=== PATIENT | male | born 1970 | race African-American/Black ===

== ENCOUNTER 2016-04-17 20:19 | Inpatient (IN) | payer OTHER ==
[2016-04-17 21:54] VITALS: BMI 24.5
--- NOTE | 2016-04-17 22:12 | HP ---
COWS - Scale Resting Pulse: 1= [place] 81-100 Sweatin= Chills/Flushing Restless Observation: 1= Difficult to Sit Still Pupil Size: 0= Normal to Room Light Bone or Joint Aches: 2= Severe Diffuse Aches Runny Nose/ Eye Tearin= Nasal Congestion GI Upset > 30mins: 2= Nausea/Diarrhea Tremor Observation: 2= Slight Tremor Visible Yawning Observation: 0= None Anxiety or Irritability: 2=Irritable/Anxious Goose Flesh Skin: 0=Smooth Skin COWS Score: 12 CIWA Score - CIWA Score Nausea/Vomitin-Mild Nausea/No Vomiting Muscle Tremors: 4-Moderate,w/Arms Extend Anxiety: 4-Mod. 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, denies mental illness is admitted to detox Exam Limitations: No Limitations - Ebola screening Have you traveled outside of the country in the last 21 days: No (N) Have you had contact with anyone from an Ebola affected area: No Have you been sick,other than usual withdrawal symptoms: No Do you have a fever: No - Review of Systems Constitutional: Chills, Loss of Appetite, Changes in sleep, Unexplained wgt Loss EENT: reports: No Symptoms Reported Respiratory: reports: SOB with Exertion, Other ( needed eye glasses) Cardiac: reports: No Symptoms Reported GI: reports: Nausea, Poor Appetite, Poor Fluid Intake, Abdominal cramping : reports: No Symptoms Reported Musculoskeletal: reports: Joint Pain (right shoulder) Integumentary: reports: No Symptoms Reported Neuro: reports: Tremors Endocrine: reports: No Symptoms Reported Hematology: reports: No Symptoms Reported Psychiatric: reports: Judgement Intact, Orientated x3, Anxious Other Systems: Reviewed and Negative Patient History - Patient Medical History Hx Anemia: No Hx Asthma: No Hx Chronic Obstructive Pulmonary Disease (COPD): Yes Hx Cancer: No Hx Cardiac Disorders: No Hx Congestive Heart Failure: No Hx Hypertension: No Hx Hypercholesterolemia: No Hx Pacemaker: No HX Cerebrovascular Accident: No Hx Seizures: No Hx Dementia: No Hx Diabetes: No Hx Gastrointestinal Disorders: No Hx Liver Disease: No Hx Genitourinary Disorders: No Hx Sexually Transmitted Disorders: No Hx Renal Disease (ESRD): No Hx Thyroid Disease: No Hx Human Immunodeficiency Virus (HIV): No (last 2009 negative) Hx Hepatitis C: No Hx Depression: Yes Hx Suicide Attempt: No Hx Bipolar Disorder: No Hx Schizophrenia: No - Patient Surgical History Past Surgical History: No Hx Neurologic Surgery: No Hx Cataract Extraction: No Hx Cardiac Surgery: No Hx Lung Surgery: No Hx Breast Surgery: No Hx Breast Biopsy: No Hx Abdominal Surgery: No Hx Appendectomy: No Hx Cholecystectomy: No Hx Genitourinary Surgery: No Hx Orthopedic Surgery: No - PPD History Previous Implant?: Yes Documented Results: Negative w/proof Implanted On Prior R Admission?: Yes Date: 07/14/15 Results: 0 mm PPD to be Administered?: No - Smoking Cessation Smoking history: Current every day smoker Have you smoked in the past 12 months: Yes Aproximately how many cigarettes per day: 20 Cigars Per Day: 0 Hx Chewing Tobacco Use: No Initiated information on smoking cessation: Yes 'Breaking Loose' booklet given: 04/17/16 - Substance & Tx. History Hx Alcohol Use: Yes Hx Substance Use: Yes Substance Use Type: Alcohol, Heroin, Opiates Hx Substance Use Treatment: Yes - Substances Abused Alcohol Route: Oral Frequency: Daily Amount used: liquor- 2 pints, beer 1 six pack Age of first use: 17 Date of Last Use: 04/17/16 Heroin Route: Inhalation Frequency: Daily Amount used: 8 bags Age of first use: 21 Date of Last Use: 04/17/16 Family Disease History - Family Disease History Family Disease History: Diabetes: Mother, Heart Disease: Father Admission Physical Exam BHS - Vital Signs Vital Signs: Vital Signs - 24 hr 04/17/16 21:47 Temperature 97.6 F Pulse Rate 88 Respiratory 20 Rate Blood Pressure 126/70 - Physical General Appearance: Yes: Appropriately Dressed, Mild Distress, Alcohol on Breath , Thin, Tremorous, Irritable, Sweating, Anxious HEENTM: Yes: Hearing grossly Normal, Normal ENT Inspection, Normocephalic, Normal Voice Respiratory: Yes: Chest Non-Tender, No Respiratory Distress, No Accessory Muscle Use, Hyperresonant, Inspiration Neck: Yes: Supple, Trachea in good position Breast: Yes: Breasts Symetrical Cardiology: Yes: Regular Rhythm, Regular Rate, S1, S2 Abdominal: Yes: Non Tender, Soft Genitourinary: Yes: Within Normal Limits Back: Yes: Normal Inspection Musculoskeletal: Yes: full range of Motion, Gait Steady, Muscle Pain Extremities: Yes: Normal Range of Motion, Non-Tender, Tremors Neurological: Yes: Fully Oriented, Alert, Motor Strength 5/5, Normal Response, Depressed Affect Integumentary: Yes: Warm Lymphatic: Yes: Within Normal Limits - Diagnostic (1) Alcohol dependence with uncomplicated withdrawal Current Visit: Yes Status: Acute (2) Anxiety and depression Current Visit: Yes Status: Suspected (3) Decreased range of motion of right shoulder Current Visit: Yes Status: Chronic (4) Nicotine dependence Current Visit: Yes Status: Acute Qualifiers: Nicotine product type: cigarettes Substance use status: uncomplicated Qualified Code(s): F17.210 - Nicotine dependence, cigarettes, uncomplicated (5) Opioid dependence with withdrawal Current Visit: Yes Status: Acute (6) Weight loss Current Visit: Yes Status: Acute (7) COPD (chronic obstructive pulmonary disease) Current Visit: Yes Status: Acute Qualifiers: COPD type: emphysema Emphysema type: other Qualified Code(s): J43.8 - Other emphysema Cleared for Admission BHS - Detox or Rehab [facility] Level of Care: Medically Managed Detox Regimen/Protocol: Methadone/Librium S Breath Alcohol Content Breath Alcohol Content: 0.076 Urine Drug Screen - Results Urine Drug Screen Results: OPI-Opiates, OXY-Oxycodone
[2016-04-17] MEDS ORDERED: guaiFENesin/D-METHORPHAN HB 10 ML UNIT-DOSE CUPS PO PRN (22:17)
[2016-04-17] MEDS ORDERED: NICOTINE POLACRILEX 2 MG GUM BC PRN (22:17)
[2016-04-17] MEDS ORDERED: LOPERAMIDE HCL 2 MG CAPSULE PO PRN (22:17)
[2016-04-17] MEDS ORDERED: chlordiazePOXIDE HCL 25 MG CAPSULE PO ONE (22:17)
[2016-04-17] MEDS ORDERED: P-EPHED 60MG/TRIPROLIDI 2.5MG TABLET PO PRN (22:17)
[2016-04-17] MEDS ORDERED: ACETAMINOPHEN 325 MG TABLET (FP) PO PRN (22:17)
[2016-04-17] MEDS ORDERED: MAGNESIUM CITRATE 300 ML BOTTLE PO PRN (22:17)
[2016-04-17] MEDS ORDERED: MENTHOL/PHENOL 1 EACH UD MM PRN (22:17)
[2016-04-17] MEDS ORDERED: MAG HYDROX/AL HYDROX/SIMETH 30 ML UNIT-DOSE CUP PO PRN (22:17)
[2016-04-17] MEDS ORDERED: MAGNESIUM HYDROX 2400MG/30ML ORAL SUSPENSION 30 ML CUP PO PRN (22:17)
[2016-04-17] MEDS ORDERED: METHADONE HCL 10 MG TABLET (FOR DETOX USE ONLY) PO ONE ×2 (22:17→23:00)
[2016-04-17] MEDS ORDERED: ALBUTEROL SO4 6.7 GM HFA INHALER IH PRN (22:25)
[2016-04-17] MEDS: chlordiazePOXIDE HCL 25 MG CAPSULE PO SCH (22:42)
[2016-04-17] MEDS: diphenhydrAMINE HCL 50 MG CAPSULE PO PRN (22:43)
[2016-04-18] MEDS: chlordiazePOXIDE HCL 25 MG CAPSULE PO SCH ×4 (05:45→22:11)
[2016-04-18 09:54] LABS: MEAN PLT VOLUME 8.9 fl (7.5-11.1); PLATELET COUNT 197 K/MM3 (134-434); RDW 13.6 % (11.9-15.9); WHITE BLOOD COUNT 4.6 K/mm3 (4.0-10.0)
[2016-04-18] MEDS ORDERED: METHADONE HCL 10 MG TABLET (FOR DETOX USE ONLY) PO SCH (10:00)
[2016-04-18] MEDS: HYDROCORTISONE 1% TOPICAL OINT 30 GM TUBE TP SCH ×4 (10:00→22:12)
[2016-04-18 10:12] LABS: ALBUMIN 3.4 g/dl (3.4-5.0); ALK PHOS 65 U/L (45-117); ANION GAP 6 (8-16); BILIRUBIN,TOTAL 0.3 mg/dL (0.2-1.0); CALCIUM 8.9 mg/dL (8.5-10.1); CO2 30 mmol/L (21-32); GLUCOSE,RANDOM 99 mg/dL (74-106); SGOT/AST 77 U/L (15-37); SGPT/ALT 96 U/L (12-78); TOT PROT 6.4 g/dl (6.4-8.2)
--- NOTE | 2016-04-18 10:32 | CONSULT ---
[facility] Psychiatric Consult - Data Date of interview: 04/18/16 Admission source: [facility] Identifying data: Readmission to [facility] for this 45 y/o AA male seeking detox treatment on for alcohol and heroin dependence.Patient is single without children,domiciled and supported on odd jobs. Substance Abuse History: - Smoking Cessation. Smoking history: Current every day smoker. Have you smoked in the past 12 months: Yes. Aproximately how many cigarettes per day: 20. Cigars Per Day: 0. Hx Chewing Tobacco Use: No. Initiated information on smoking cessation: Yes. 'Breaking Loose' booklet given : 04/17/16. - Substance & Tx. History. Hx Alcohol Use: Yes. Hx Substance Use : Yes. Substance Use Type: Alcohol, Heroin, Opiates. Hx Substance Use Treatment: Yes. - Substances Abused. Alcohol. Route: Oral. Frequency: Daily. Amount used: liquor- 2 pints, beer 1 six pack. Age of first use: 17. Date of Last Use: 04/17/16. Heroin. Route: Inhalation. Frequency: Daily. Amount used: 8 bags. Age of first use: 21. Date of Last Use: 04/17/16. Patient confirmed. Medical History: Remarkable for a history of injury to right shoulder (2013) with atrophy of right arm. Psychiatric History: Patient denies. Physical/Sexual Abuse/Trauma History: Patient denies. Mental Status Exam - Mental Status Exam Alert and Oriented to: Time, Place, Person Cognitive Function: Good Patient Appearance: Well Groomed Mood: Nervous, Withdrawn, Hopeful Affect: Mood Congruent Patient Behavior: Fatigued, Talkative, Appropriate, Cooperative Speech Pattern: Clear, Appropriate Voice Loudness: Normal Thought Process: Goal Oriented Thought Disorder: Not Present Hallucinations: Denies Suicidal Ideation: Denies Homicidal Ideation: Denies Insight/Judgement: Poor Sleep: Well (as per self-report) Appetite: Good Muscle strength/Tone: Normal Psychiatric Findings - Problem List ([place] 1, 2,3) (1) Alcohol dependence with uncomplicated withdrawal Current Visit: Yes Status: Acute (2) Nicotine dependence Current Visit: Yes Status: Acute Qualifiers: Nicotine product type: cigarettes Substance use status: uncomplicated Qualified Code(s): F17.210 - Nicotine dependence, cigarettes, uncomplicated (3) Opioid dependence with withdrawal Current Visit: Yes Status: Acute (4) Substance induced mood disorder Current Visit: Yes Status: Acute (5) COPD (chronic obstructive pulmonary disease) Current Visit: Yes Status: Chronic Qualifiers: COPD type: emphysema Emphysema type: other Qualified Code(s): J43.8 - Other emphysema (6) Weight loss Current Visit: Yes Status: Chronic (7) Decreased range of motion of right shoulder Current Visit: Yes Status: Chronic - Initial Treatment Plan Initial Treatment Plan: Psychoeducation.Detoxification.Observation.
[2016-04-18 10:33] LABS: URINE APPEARANCE CLEAR; URINE BILIRUBIN NEGATIVE (NEGATIVE); URINE BLOOD NEGATIVE (NEGATIVE); URINE COLOR LT. YELLOW; URINE GLUCOSE (UA) NEGATIVE (NEGATIVE); URINE KETONE NEGATIVE (NEGATIVE); URINE LEUK ESTERASE NEGATIVE (NEGATIVE); URINE NITRITE NEGATIVE (NEGATIVE); URINE PROTEIN NEGATIVE (NEGATIVE); URINE UROBILINOGEN 0.2 E.U/dl E.U./dl (0.2-1.0)
[2016-04-18] MEDS: PRENATAL VITAMINS W/ FOLIC ACID TABLET (FP) PO SCH (10:42)
[2016-04-18] MEDS: NICOTINE 21 MG/24 HOURS TOPICAL PATCH TD SCH (10:43)
--- NOTE | 2016-04-18 13:38 | PN ---
S CIWA - CIWA Score Nausea/Vomitin Muscle Tremors: 2 Anxiety: 2 Agitation: 2 Paroxysmal Sweats: 3 Orientation: 0-Oriented Tacttile Disturbances: 1-Very Mild Itch/Numbness Auditory Disturbances: 0-None Visual Disturbances: 0-None Headache: 0-None Present CIWA-Ar Total Score: 12 BHS COWS - Scale Resting Pulse: 2= [place] 101-120 Sweatin=Flushed/Facial Moisture Restless Observation: 1= Difficult to Sit Still Pupil Size: 1= Pupils >than Normal Bone or Joint Aches: 1= Mild Discomfort Runny Nose/ Eye Tearin= Nasal Congestion GI Upset > 30mins: 1= Stomach Cramp Tremor Observation of Outstretched Hands: 1= Tremor [place], Not Seen Yawning Observation: 0= None Anxiety or Irritability: 1=Feels Anxious/Irritable Goose Flesh Skin: 0=Smooth Skin COWS Score: 11 S Progress Note (SOAP) Subjective: interrupted sleep, sweats but better Objective: 04/18/16 13:37 Vital Signs Temperature 98.1 F 04/18/16 09:42 Pulse Rate 120 H 04/18/16 09:42 Respiratory Rate 18 04/18/16 09:42 Blood Pressure 120/75 04/18/16 09:42 O2 Sat by Pulse Oximetry (%) Laboratory Tests 04/18/16 04/18/16 04/18/16 07:00 07:00 07:00 WBC 4.6 RBC 4.02 Hgb 13.2 Hct 40.2 MCV 100.0 H MCHC 33.0 RDW 13.6 Plt Count 197 D MPV 8.9 Sodium 142 Potassium 4.2 Chloride 106 Carbon Dioxide 30 Anion Gap 6 L BUN 21 H Creatinine 1.0 Creat Clearance w eGFR > 60 Random Glucose 99 Calcium 8.9 Total Bilirubin 0.3 D AST 77 H D ALT 96 H D Alkaline Phosphatase 65 D Total Protein 6.4 Albumin 3.4 Urine Color Urine Appearance Urine pH Ur Specific [place] Urine Protein Urine Glucose (UA) Urine Ketones Urine Blood Urine Nitrite Urine Bilirubin Urine Urobilinogen Ur Leukocyte Esterase RPR Titer Nonreactive 04/18/16 08:00 WBC RBC Hgb Hct MCV MCHC RDW Plt Count MPV Sodium Potassium Chloride Carbon Dioxide Anion Gap BUN Creatinine Creat Clearance w eGFR Random Glucose Calcium Total Bilirubin AST ALT Alkaline Phosphatase Total Protein Albumin Urine Color Lt. yellow Urine Appearance Clear Urine pH 6.0 Ur Specific [place] 1.025 Urine Protein Negative Urine Glucose (UA) Negative Urine Ketones Negative Urine Blood Negative Urine Nitrite Negative Urine Bilirubin Negative Urine Urobilinogen 0.2 e.u/dl Ur Leukocyte Esterase Negative RPR Titer pt aox3 in nad ambulating Assessment: 04/18/16 13:37 withdrawl ssx;s elevated enzymes Plan: cont. detox increase fluids sgot/sgpt d/c tylenol
[2016-04-18] MEDS: diphenhydrAMINE HCL 50 MG CAPSULE PO PRN (22:09)
[2016-04-18] MEDS: THIAMINE HCL 100 MG TABLET (FP) PO SCH (22:10)
[2016-04-19] MEDS: chlordiazePOXIDE HCL 25 MG CAPSULE PO SCH ×3 (05:40→17:44)
[2016-04-19] MEDS ORDERED: METHADONE HCL 5 MG TABLET (FOR DETOX USE ONLY) PO SCH (10:00)
--- NOTE | 2016-04-19 10:26 | EKG ---
Test Reason : Blood Pressure : / mmHG Vent. Rate : 069 BPM Atrial Rate : 069 BPM P-R Int : 186 ms QRS Dur : 086 ms QT Int : 408 ms P-R-T Axes : 067 048 045 degrees QTc Int : 437 ms NORMAL SINUS RHYTHM POSSIBLE LEFT ATRIAL ENLARGEMENT BORDERLINE ECG NO PREVIOUS ECGS AVAILABLE Confirmed by RAYO LOZA, NOAH ([id number]) on 04/19/2016 10:26:13 AM Referred By: Confirmed By:NOAH CADE MD
[2016-04-19 10:34] LABS: SGOT/AST 62 U/L (15-37); SGPT/ALT 94 U/L (12-78)
[2016-04-19] MEDS: NICOTINE 21 MG/24 HOURS TOPICAL PATCH TD SCH (10:43)
[2016-04-19] MEDS: HYDROCORTISONE 1% TOPICAL OINT 30 GM TUBE TP SCH ×4 (10:44→22:20)
[2016-04-19] MEDS: PRENATAL VITAMINS W/ FOLIC ACID TABLET (FP) PO SCH (10:44)
--- NOTE | 2016-04-19 11:11 | PN ---
S CIWA - CIWA Score Nausea/Vomitin Muscle Tremors: 2 Anxiety: 2 Agitation: 2 Paroxysmal Sweats: 2 Orientation: 0-Oriented Tacttile Disturbances: 1-Very Mild Itch/Numbness Auditory Disturbances: 0-None Visual Disturbances: 0-None Headache: 0-None Present CIWA-Ar Total Score: 11 BHS COWS - Scale Resting Pulse: 0= [place] 80 or Below Sweatin= Chills/Flushing Restless Observation: 1= Difficult to Sit Still Pupil Size: 1= Pupils >than Normal Bone or Joint Aches: 1= Mild Discomfort Runny Nose/ Eye Tearin= Nasal Congestion GI Upset > 30mins: 1= Stomach Cramp Tremor Observation of Outstretched Hands: 1= Tremor [place], Not Seen Yawning Observation: 0= None Anxiety or Irritability: 1=Feels Anxious/Irritable Goose Flesh Skin: 0=Smooth Skin COWS Score: 8 BHS Progress Note (SOAP) Subjective: interrupted sleep, constipation Objective: 04/19/16 11:09 Vital Signs Temperature 98.1 F 04/19/16 10:19 Pulse Rate 79 04/19/16 10:19 Respiratory Rate 16 04/19/16 10:19 Blood Pressure 128/80 04/19/16 10:19 O2 Sat by Pulse Oximetry (%) Laboratory Tests 04/18/16 04/18/16 04/18/16 07:00 07:00 07:00 WBC 4.6 RBC 4.02 Hgb 13.2 Hct 40.2 MCV 100.0 H MCHC 33.0 RDW 13.6 Plt Count 197 D MPV 8.9 Sodium 142 Potassium 4.2 Chloride 106 Carbon Dioxide 30 Anion Gap 6 L BUN 21 H Creatinine 1.0 Creat Clearance w eGFR > 60 Random Glucose 99 Calcium 8.9 Total Bilirubin 0.3 D AST 77 H D ALT 96 H D Alkaline Phosphatase 65 D Total Protein 6.4 Albumin 3.4 Urine Color Urine Appearance Urine pH Ur Specific [place] Urine Protein Urine Glucose (UA) Urine Ketones Urine Blood Urine Nitrite Urine Bilirubin Urine Urobilinogen Ur Leukocyte Esterase RPR Titer Nonreactive Hepatitis C Antibody 04/18/16 04/18/16 04/19/16 07:00 08:00 07:30 WBC RBC Hgb Hct MCV MCHC RDW Plt Count MPV Sodium Potassium Chloride Carbon Dioxide Anion Gap BUN Creatinine Creat Clearance w eGFR Random Glucose Calcium Total Bilirubin AST 62 H ALT 94 H Alkaline Phosphatase Total Protein Albumin Urine Color Lt. yellow Urine Appearance Clear Urine pH 6.0 Ur Specific [place] 1.025 Urine Protein Negative Urine Glucose (UA) Negative Urine Ketones Negative Urine Blood Negative Urine Nitrite Negative Urine Bilirubin Negative Urine Urobilinogen 0.2 e.u/dl Ur Leukocyte Esterase Negative RPR Titer Hepatitis C Antibody 0.2 pt aox3 in nad ambulating Assessment: 04/19/16 11:09 withdrawl sx;s constipation Plan: cont. detox increase fluids colace tid/prn
[2016-04-19] MEDS: chlordiazePOXIDE HCL 25 MG CAPSULE PO PRN (15:42)
[2016-04-19] MEDS: DOCUSATE SODIUM 100 MG CAPSULE (FP) PO SCH ×2 (15:42→22:20)
[2016-04-19] MEDS: IBUPROFEN 400 MG TABLET (FP) PO PRN (17:46)
[2016-04-19] MEDS: chlordiazePOXIDE 5 MG CAPSULE PO SCH (22:20)
[2016-04-19] MEDS: THIAMINE HCL 100 MG TABLET (FP) PO SCH (22:20)
[2016-04-19] MEDS: diphenhydrAMINE HCL 50 MG CAPSULE PO PRN (22:20)
[2016-04-20] MEDS: chlordiazePOXIDE HCL 25 MG CAPSULE PO PRN ×2 (01:07→14:49)
[2016-04-20] MEDS: diphenhydrAMINE HCL 50 MG CAPSULE PO PRN ×2 (01:07→23:21)
[2016-04-20] MEDS: chlordiazePOXIDE 5 MG CAPSULE PO SCH ×3 (05:28→17:29)
[2016-04-20] MEDS: DOCUSATE SODIUM 100 MG CAPSULE (FP) PO SCH ×3 (05:30→21:54)
[2016-04-20] MEDS: IBUPROFEN 400 MG TABLET (FP) PO PRN (05:31)
--- NOTE | 2016-04-20 09:12 | PN ---
BHS Progress Note (SOAP) Subjective: feeling better a little anxious Objective: 04/20/16 09:11 Vital Signs Temperature 96.8 F L 04/20/16 05:53 Pulse Rate 57 L 04/20/16 05:53 Respiratory Rate 18 04/20/16 05:53 Blood Pressure 120/72 04/20/16 05:53 O2 Sat by Pulse Oximetry (%) Laboratory Tests 04/18/16 04/18/16 04/18/16 07:00 07:00 07:00 WBC 4.6 RBC 4.02 Hgb 13.2 Hct 40.2 MCV 100.0 H MCHC 33.0 RDW 13.6 Plt Count 197 D MPV 8.9 Sodium 142 Potassium 4.2 Chloride 106 Carbon Dioxide 30 Anion Gap 6 L BUN 21 H Creatinine 1.0 Creat Clearance w eGFR > 60 Random Glucose 99 Calcium 8.9 Total Bilirubin 0.3 D AST 77 H D ALT 96 H D Alkaline Phosphatase 65 D Total Protein 6.4 Albumin 3.4 Urine Color Urine Appearance Urine pH Ur Specific [place] Urine Protein Urine Glucose (UA) Urine Ketones Urine Blood Urine Nitrite Urine Bilirubin Urine Urobilinogen Ur Leukocyte Esterase RPR Titer Nonreactive Hepatitis C Antibody 04/18/16 04/18/16 04/19/16 07:00 08:00 07:30 WBC RBC Hgb Hct MCV MCHC RDW Plt Count MPV Sodium Potassium Chloride Carbon Dioxide Anion Gap BUN Creatinine Creat Clearance w eGFR Random Glucose Calcium Total Bilirubin AST 62 H ALT 94 H Alkaline Phosphatase Total Protein Albumin Urine Color Lt. yellow Urine Appearance Clear Urine pH 6.0 Ur Specific [place] 1.025 Urine Protein Negative Urine Glucose (UA) Negative Urine Ketones Negative Urine Blood Negative Urine Nitrite Negative Urine Bilirubin Negative Urine Urobilinogen 0.2 e.u/dl Ur Leukocyte Esterase Negative RPR Titer Hepatitis C Antibody 0.2 awake/alert ambulating no acute distress Assessment: 04/20/16 09:11 withdrawal sx Plan: continue detox increase fluids d/c in am
[2016-04-20] MEDS ORDERED: METHADONE HCL 10 MG TABLET (FOR DETOX USE ONLY) PO SCH (10:00)
[2016-04-20] MEDS: HYDROCORTISONE 1% TOPICAL OINT 30 GM TUBE TP SCH ×4 (10:36→21:54)
[2016-04-20] MEDS: PRENATAL VITAMINS W/ FOLIC ACID TABLET (FP) PO SCH (10:37)
[2016-04-20] MEDS: NICOTINE 21 MG/24 HOURS TOPICAL PATCH TD SCH (10:37)
--- NOTE | 2016-04-20 14:08 | PN ---
Psychiatric Progress Note Vital Signs: Vital Signs Period Temp Pulse Resp BP Sys/Silva Pulse Ox Last 24 Hr 96.8 F-98.1 F 57-94 18-20 119-137/67-84 Date of Session: 04/20/16 Chief Complaint:: Insomnia HPI: Patient reports did not sleep at all last night, asking for help Current Medications: Active Medications Generic Name Dose Route Start Last Admin Trade Name Freq PRN Reason Stop Dose Admin Al Hydroxide/Mg Hydroxide 30 ml 04/17/16 22:17 Mylanta Oral Suspension - PO Q6H PRN DYSPEPSIA Albuterol Sulfate 2 puff 04/17/16 22:25 Ventolin Hfa Inhaler - IH Q4H PRN SHORT OF BREATH/WHEEZING Chlordiazepoxide HCl 10 mg 04/20/16 23:00 Librium - PO 04/21/16 17:01 [id number] COLBY Chlordiazepoxide HCl 25 mg 04/17/16 22:17 04/20/16 01:07 Librium - PO 04/20/16 22:17 25 mg Q4H PRN Administration WITHDRAWAL(CONT SUBST) Chlordiazepoxide HCl 15 mg 04/19/16 23:00 04/20/16 10:37 Librium - PO 04/20/16 17:01 15 mg [id number] COLBY Administration Diphenhydramine HCl 50 mg 04/17/16 22:17 04/20/16 01:07 Benadryl - PO 50 mg HSMR1 PRN Administration INSOMNIA Docusate Sodium 100 mg 04/19/16 14:00 04/20/16 05:30 Colace - PO 100 mg TID COLBY Administration Eucalyptus/Menthol/Phenol/Sorbitol 1 each 04/17/16 22:17 Cepastat Lozenge - MM Q4H PRN SORE THROAT Guaifenesin 10 ml 04/17/16 22:17 Robitussin Dm - PO Q6H PRN COUGH Hydrocortisone 1 applic 04/18/16 10:00 04/20/16 10:36 Hytone 1% Ointment - TP 1 applic QID COLBY Administration Ibuprofen 400 mg 04/17/16 22:17 04/20/16 05:31 Motrin - PO 400 mg Q6H PRN Administration SEVERE PAIN Loperamide HCl 4 mg 04/17/16 22:17 Imodium - PO Q6H PRN DIARRHEA Magnesium Citrate 300 ml 04/17/16 22:17 Citroma - PO Q48H PRN CONSTIPATION Magnesium Hydroxide 30 ml 04/17/16 22:17 Milk Of Magnesia - PO DAILY PRN CONSTIPATION Methadone HCl 5 mg 04/21/16 06:00 Dolophine - PO 04/21/16 06:01 DAILY@0600 COLBY Nicotine 21 mg 04/18/16 10:00 04/20/16 10:37 Nicoderm Patch - TD Not Given DAILY COLBY Nicotine Polacrilex 2 mg 04/17/16 22:17 Nicorette Gum - BC Q2H PRN NICOTINE REPLACEMENT RX Multivit/Folic Acid/Iron 1 tab 04/18/16 10:00 04/20/16 10:37 Vitamins (Sjr) - PO 1 tab DAILY COLBY Administration Pseudoephedrine/Triprolidine 1 combo 04/17/16 22:17 Actifed - PO TID PRN NASAL CONGESTION Quetiapine Fumarate 150 mg 04/20/16 22:00 Seroquel - PO HS COLBY Thiamine HCl 100 mg 04/18/16 22:00 04/19/16 22:20 Vitamin B1 - PO 100 mg HS COLBY Administration Medication(s) Change(s): Seroquel 150mg po qhs Mental Status Exam - Mental Status Exam Alert and Oriented to: Time Cognitive Function: Fair Patient Appearance: Well Groomed Mood: Anxious Affect: Mood Congruent Patient Behavior: Cooperative Speech Pattern: Appropriate Voice Loudness: Normal Thought Process: Goal Oriented Thought Disorder: Being Controlled Hallucinations: Denies Suicidal Ideation: Denies Homicidal Ideation: Denies Insight/Judgement: Fair Sleep: Difficulty falling asleep Appetite: Fair Muscle strength/Tone: Normal Gait/Station: Normal Additional Comments: Seroquel 150mg poqd Psychiatric Treatment Plan - Problem List (1) Alcohol dependence with uncomplicated withdrawal Current Visit: Yes (2) Nicotine dependence Current Visit: Yes Qualifiers: Nicotine product type: cigarettes Substance use status: uncomplicated Qualified Code(s): F17.210 - Nicotine dependence, cigarettes, uncomplicated (3) Opioid dependence with withdrawal Current Visit: Yes (4) Substance induced mood disorder Current Visit: Yes (5) Anxiety and depression Current Visit: Yes (6) Alcohol dependence Current Visit: No Qualifiers: Substance use status: uncomplicated Qualified Code(s): F10.20 - Alcohol dependence, uncomplicated (7) Heroin dependence Current Visit: No (8) Cocaine dependence Current Visit: No Qualifiers: Substance use status: uncomplicated Qualified Code(s): F14.20 - Cocaine dependence, uncomplicated (9) Opioid dependence Current Visit: No Qualifiers: Substance use status: uncomplicated Qualified Code(s): F11.20 - Opioid dependence, uncomplicated (10) Substance-induced sleep disorder Current Visit: No Initial treatment plan: Seroquel 150mg poqd
[2016-04-20] MEDS: THIAMINE HCL 100 MG TABLET (FP) PO SCH (21:53)
[2016-04-20] MEDS ORDERED: QUEtiapine FUMARATE 50 MG TABLET PO SCH (22:00)
[2016-04-20] MEDS: chlordiazePOXIDE HCL 10 MG CAPSULE PO SCH (22:05)
[2016-04-21] MEDS: chlordiazePOXIDE HCL 10 MG CAPSULE PO SCH (05:52)
[2016-04-21] MEDS: DOCUSATE SODIUM 100 MG CAPSULE (FP) PO SCH (05:52)
[2016-04-21] MEDS ORDERED: METHADONE HCL 5 MG TABLET (FOR DETOX USE ONLY) PO SCH (06:00)
[2016-04-21 06:28] VITALS: BP 98/71; PULSE 85; TEMP 98.1
== END 2016-04-21 07:10 | disposition home or self-care (01) | DRG 773 ==
LOC: YASAS 20:19 → Y6N 21:59
PROVIDERS: ADMIT Internal Medicine; ATTEND Internal Medicine
PROC: HZ2ZZZZ Detoxification Services for Substance Abuse Treatment (ICD-10-PCS; principal; 2016-04-17)
DX: F11.23 Opioid dependence with withdrawal (principal); F10.230 Alcohol dependence with withdrawal, uncomplicated; F17.210 Nicotine dependence, cigarettes, uncomplicated; F19.24 Other psychoactive substance dependence with psychoactive substance-induced mood disorder; F19.282 Other psychoactive substance dependence with psychoactive substance-induced sleep disorder; F41.8 Other specified anxiety disorders; J43.8 Other emphysema; M62.521 Muscle wasting and atrophy, not elsewhere classified, right upper arm; R21 Rash and other nonspecific skin eruption; R74.8 Abnormal levels of other serum enzymes; Z87.898 Personal history of other specified conditions; K59.00 Constipation, unspecified
CPT/HCPCS: 36415; 80053; 81003; 84450; 84460; 85027; 86593; 86803; 93005; 93010

== ENCOUNTER 2016-12-15 17:50 | Inpatient (IN) | payer OTHER ==
[2016-12-15 18:19] VITALS: BMI 21.9
--- NOTE | 2016-12-15 21:26 | HP ---
COWS - Scale Resting Pulse: 1= [place] 81-100 Sweatin= Chills/Flushing Restless Observation: 3= Extraneous Movement Pupil Size: 1= Pupils >than Normal Bone or Joint Aches: 2= Severe Diffuse Aches Runny Nose/ Eye Tearin= Runny Nose/Eyes GI Upset > 30mins: 1= Stomach Cramp Tremor Observation: 2= Slight Tremor Visible Yawning Observation: 1= 1-2x During Session Anxiety or Irritability: 1=Feels Anxious/Irritable Goose Flesh Skin: 3=Piloerection COWS Score: 18 CIWA Score - CIWA Score Nausea/Vomitin-Mild Nausea/No Vomiting Muscle Tremors: 1-None Visible, but [place] Anxiety: 2 Agitation: 2 Paroxysmal Sweats: 2 Orientation: 2-Disoriented Date<2 days Tacttile Disturbances: 0-None Auditory Disturbances: 1-Very Mild Visual Disturbances: 1-Very Mild Sensitivity Headache: 1-Very Mild CIWA-Ar Total Score: 13 Admission ROS S - HPI Chief Complaint: WITHDRAWAL SYMPTOMS Allergies/Adverse Reactions: Allergies Allergy/AdvReac Type Severity Reaction Status Date / Time No Known Allergies Allergy Verified 12/15/16 19:01 History of Present Illness: 46 Y.O. MAN WITH A HISTORY OF ALCOHOL AND HEROIN DEPENDENCE IS HERE SEEKING DETOX. HE WAS LAST HERE FOR DETOX ON 04/2016. HE DOES NOT HAVE A SIGNIFICANT PERIOD CLEAN. Exam Limitations: Intoxication - Ebola screening Have you traveled outside of the country in the last 21 days: No (N) Have you had contact with anyone from an Ebola affected area: No Have you been sick,other than usual withdrawal symptoms: No Do you have a fever: No - Review of Systems Constitutional: No Symptoms Reported EENT: reports: Blurred Vision, Tearing, Nose Congestion Respiratory: reports: Shortness of Breath Cardiac: reports: No Symptoms Reported GI: reports: No Symptoms Reported : reports: No Symptoms Reported Musculoskeletal: reports: Back Pain Integumentary: reports: No Symptoms Reported Neuro: reports: No Symptoms reported Endocrine: reports: No Symptoms Reported Hematology: reports: No Symptoms Reported Psychiatric: reports: Depressed Other Systems: Reviewed and Negative Patient History - Patient Medical History Hx Anemia: No Hx Asthma: No Hx Chronic Obstructive Pulmonary Disease (COPD): No Hx Cancer: No Hx Cardiac Disorders: No Hx Congestive Heart Failure: No Hx Hypertension: No Hx Hypercholesterolemia: No Hx Pacemaker: No HX Cerebrovascular Accident: No Hx Seizures: No Hx Dementia: No Hx Diabetes: No Hx Gastrointestinal Disorders: No Hx Liver Disease: No Hx Genitourinary Disorders: No Hx Sexually Transmitted Disorders: No Hx Renal Disease (ESRD): No Hx Thyroid Disease: No Hx Human Immunodeficiency Virus (HIV): No Hx Hepatitis C: No Hx Depression: Yes Hx Suicide Attempt: No Hx Bipolar Disorder: No Hx Schizophrenia: No - Patient Surgical History Past Surgical History: No Hx Neurologic Surgery: No Hx Cataract Extraction: No Hx Cardiac Surgery: No Hx Lung Surgery: No Hx Breast Surgery: No Hx Breast Biopsy: No Hx Abdominal Surgery: No Hx Appendectomy: No Hx Cholecystectomy: No Hx Genitourinary Surgery: No Hx Section: No Hx Orthopedic Surgery: No Anesthesia Reaction: No - PPD History Previous Implant?: Yes Documented Results: Negative w/proof Date: 07/14/15 Results: 0 mm PPD to be Administered?: Yes - Reproductive History Patient is a Female of Child Bearing Age (11 -55 yrs old): No - Smoking Cessation Smoking history: Current every day smoker Have you smoked in the past 12 months: Yes Aproximately how many cigarettes per day: 20 Cigars Per Day: 0 Hx Chewing Tobacco Use: No Initiated information on smoking cessation: Yes 'Breaking Loose' booklet given: 12/15/16 - Substance & Tx. History Hx Alcohol Use: Yes Hx Substance Use: Yes Substance Use Type: Alcohol, Heroin Hx Substance Use Treatment: Yes (DETOX: 05/2016; REHAB: DOES NOT RECALL ) - Substances Abused Alcohol Route: Oral Frequency: Daily Amount used: liquor- 3 pints, beer- 1 six pack Age of first use: 17 Date of Last Use: 12/15/16 Heroin Route: Injection Frequency: Daily Amount used: 8 bags Age of first use: 21 Date of Last Use: 12/15/16 Family Disease History - Family Disease History Family Disease History: Diabetes: Mother, Heart Disease: Father Admission Physical Exam BHS - Vital Signs Vital Signs: Vital Signs - 24 hr 12/15/16 18:15 Temperature 97.9 F Pulse Rate 90 Respiratory 18 Rate Blood Pressure 111/73 - Physical General Appearance: Yes: Irritable, Anxious HEENTM: Yes: Hearing grossly Normal, Normocephalic, Normal Voice Respiratory: Yes: Chest Non-Tender, Lungs Clear, Normal Breath Sounds, No Respiratory Distress, No Accessory Muscle Use Neck: Yes: No masses,lesions,Nodules, Trachea in good position Breast: Yes: Breast Exam Deferred Cardiology: Yes: Regular Rhythm, Regular Rate Abdominal: Yes: Flat, Soft Genitourinary: Yes: Other (NO COMPLAINTS REPORTED) Back: Yes: Normal Inspection Musculoskeletal: Yes: full range of Motion, Gait Steady, Pelvis Stable Extremities: Yes: Normal Capillary Refill, Normal Inspection, Normal Range of Motion, Non-Tender Neurological: Yes: Fully Oriented, Alert, Normal Mood/Affect, Normal Response Integumentary: Yes: Normal Color, Dry, Warm Lymphatic: Yes: Within Normal Limits - Diagnostic (1) Alcohol dependence Current Visit: Yes Status: Chronic (2) Nicotine dependence Current Visit: Yes Status: Chronic Qualifiers: (3) Opioid dependence with withdrawal Current Visit: Yes Status: Chronic Cleared for Admission [facility] - Detox or Rehab [facility] Level of Care: Medically Managed Detox Regimen/Protocol: Methadone/Librium [facility] Breath Alcohol Content Breath Alcohol Content: 0.130 Urine Drug Screen - Results Drug Screen Negative: No Urine Drug Screen Results: OPI-Opiates
[2016-12-15] MEDS ORDERED: P-EPHED 60MG/TRIPROLIDI 2.5MG TABLET PO PRN (21:38)
[2016-12-15] MEDS ORDERED: hydrOXYzine PAMOATE 50 MG CAPSULE (FP) PO PRN (21:38)
[2016-12-15] MEDS ORDERED: MENTHOL/PHENOL 1 EACH UD MM PRN (21:38)
[2016-12-15] MEDS ORDERED: ACETAMINOPHEN 325 MG TABLET (FP) PO PRN (21:38)
[2016-12-15] MEDS ORDERED: METHADONE HCL 10 MG TABLET (FOR DETOX USE ONLY) PO ONE ×2 (21:38→23:00)
[2016-12-15] MEDS ORDERED: chlordiazePOXIDE HCL 25 MG CAPSULE PO ONE (21:38)
[2016-12-15] MEDS ORDERED: IBUPROFEN 400 MG TABLET (FP) PO PRN (21:38)
[2016-12-15] MEDS ORDERED: NICOTINE POLACRILEX 2 MG GUM BC PRN (21:38)
[2016-12-15] MEDS ORDERED: MAGNESIUM HYDROX 2400MG/30ML ORAL SUSPENSION 30 ML CUP PO PRN (21:38)
[2016-12-15] MEDS ORDERED: LOPERAMIDE HCL 2 MG CAPSULE PO PRN (21:38)
[2016-12-15] MEDS ORDERED: MAGNESIUM CITRATE 300 ML BOTTLE PO PRN (21:38)
[2016-12-15] MEDS ORDERED: guaiFENesin/D-METHORPHAN HB 10 ML UNIT-DOSE CUPS PO PRN (21:38)
[2016-12-15] MEDS ORDERED: MAG HYDROX/AL HYDROX/SIMETH 30 ML UNIT-DOSE CUP PO PRN (21:38)
[2016-12-15] MEDS: THIAMINE HCL 100 MG TABLET (FP) PO SCH (22:03)
[2016-12-15] MEDS: chlordiazePOXIDE HCL 25 MG CAPSULE PO SCH (22:03)
[2016-12-16 00:18] LABS: URINE APPEARANCE TURBID; URINE BILIRUBIN NEGATIVE (NEGATIVE); URINE BLOOD NEGATIVE (NEGATIVE); URINE COLOR YELLOW; URINE GLUCOSE (UA) NEGATIVE (NEGATIVE); URINE KETONE NEGATIVE (NEGATIVE); URINE LEUK ESTERASE NEGATIVE (NEGATIVE); URINE NITRITE NEGATIVE (NEGATIVE); URINE PROTEIN 1+ (NEGATIVE); URINE UROBILINOGEN NEGATIVE mg/dL (0.2-1.0)
[2016-12-16 00:27] LABS: URINE MUCUS MANY; URINE RBC 4 /hpf (0-3)
[2016-12-16] MEDS: chlordiazePOXIDE HCL 25 MG CAPSULE PO SCH ×4 (05:22→23:09)
--- NOTE | 2016-12-16 09:29 | EKG ---
Test Reason : Blood Pressure : / mmHG Vent. Rate : 065 BPM Atrial Rate : 065 BPM P-R Int : 188 ms QRS Dur : 092 ms QT Int : 408 ms P-R-T Axes : 060 051 048 degrees QTc Int : 424 ms NORMAL SINUS RHYTHM WITH SINUS ARRHYTHMIA POSSIBLE LEFT ATRIAL ENLARGEMENT NONSPECIFIC T WAVE ABNORMALITY Confirmed by MD YENNY, SERGIO ([id number]) on 12/16/2016 9:28:46 AM Referred By: Confirmed By:SERGIO RAMON MD
[2016-12-16] MEDS ORDERED: METHADONE HCL 10 MG TABLET (FOR DETOX USE ONLY) PO SCH (10:00)
[2016-12-16] MEDS: PRENATAL VITAMINS W/ FOLIC ACID TABLET (FP) PO SCH (10:43)
[2016-12-16] MEDS: NICOTINE 21 MG/24 HOURS TOPICAL PATCH TD SCH (10:44)
[2016-12-16 10:59] LABS: MCH 33.5 pg (25.7-33.7); MCHC 33.7 g/dl (32.0-35.9); MEAN CELL VOLUME 99.6 fl (80-96); MEAN PLT VOLUME 8.3 fl (7.5-11.1); PLATELET COUNT 212 K/MM3 (134-434); RDW 13.7 % (11.9-15.9); WHITE BLOOD COUNT 4.3 K/mm3 (4.0-10.0)
[2016-12-16 11:03] LABS: ALBUMIN 3.5 g/dl (3.4-5.0); ANION GAP 8 (8-16); BILIRUBIN,TOTAL 0.6 mg/dL (0.2-1.0); CALCIUM 9.1 mg/dL (8.5-10.1); CO2 28 mmol/L (21-32); CREATININE 0.9 mg/dL (0.7-1.3); GLUCOSE,RANDOM 102 mg/dL (74-106); SGOT/AST 184 U/L (15-37); SGPT/ALT 263 U/L (12-78); TOT PROT 7.6 g/dl (6.4-8.2)
[2016-12-16 11:04] LABS: ALK PHOS 238 U/L (45-117)
--- NOTE | 2016-12-16 11:37 | CONSULT ---
[facility] Psychiatric Consult - Data Date of interview: 12/16/16 Admission source: [facility] Identifying data: Another admission to [facility] for this 46 y/o AA male seeking detox treatment on for alcohol and heroin dependence.Patient is single without children,domiciled and supported by relatives. Substance Abuse History: Confirmed by patient in this interview. Smoking Cessation. Smoking history: Current every day smoker. Have you smoked in the past 12 months: Yes. Aproximately how many cigarettes per day: 20. Cigars Per Day: 0. Hx Chewing Tobacco Use: No. Initiated information on smoking cessation : Yes. 'Breaking Loose' booklet given: 12/15/16. - Substance & Tx. History. Hx Alcohol Use: Yes. Hx Substance Use: Yes. Substance Use Type: Alcohol, Heroin. Hx Substance Use Treatment: Yes (DETOX: 05/2016; REHAB: DOES NOT RECALL ). - Substances Abused. Alcohol. Route: Oral. Frequency: Daily. Amount used: liquor- 3 pints, beer- 1 six pack. Age of first use: 17. Date of Last Use: 12/15/16. Heroin. Route: Injection. Frequency: Daily. Amount used: 8 bags. Age of first use: 21. 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 Psychiatric History: Patient admits to a brief psychiatric hospitalization at [facility] in 1999." I faked symptoms to get admitted because of some issues."No details given.Mr Jolly denies having a mental illness.No history of OPD care.Patient denies suicide attempts. Physical/Sexual Abuse/Trauma History: No history. Additional Comment: Urine Drug Screen Results: OPI-Opiates.Noted. Mental Status Exam - Mental Status Exam Alert and Oriented to: Time, Place, Person Cognitive Function: Good Mood: Hopeful, Euthymic Affect: Appropriate, Normal Range Patient Behavior: Appropriate, Cooperative Speech Pattern: Clear Voice Loudness: Normal Thought Process: Intact, Goal Oriented Thought Disorder: Not Present Hallucinations: Denies Suicidal Ideation: Denies Homicidal Ideation: Denies Insight/Judgement: Poor Sleep: Well Appetite: Good Muscle strength/Tone: Normal Gait/Station: Normal Psychiatric Findings - Problem List ([place] 1, 2,3) (1) Alcohol dependence with uncomplicated withdrawal Current Visit: Yes Status: Acute (2) Nicotine dependence Current Visit: Yes Status: Chronic Qualifiers: (3) Opioid dependence with withdrawal Current Visit: Yes Status: Acute (4) Decreased range of motion of right shoulder Current Visit: Yes Status: Chronic (5) COPD (chronic obstructive pulmonary disease) Current Visit: Yes Status: Chronic Qualifiers: COPD type: emphysema Emphysema type: other Qualified Code(s): J43.8 - Other emphysema - Initial Treatment Plan Initial Treatment Plan: Psychoeducation.Detoxification.Observation.
[2016-12-16] MEDS: chlordiazePOXIDE HCL 25 MG CAPSULE PO PRN (13:03)
[2016-12-16 13:19] LABS: HIV 1 & 2 AB NEGATIVE; HIV 1 AGp24 NEGATIVE
--- NOTE | 2016-12-16 19:15 | PN ---
[facility] CIWA - CIWA Score Nausea/Vomitin Muscle Tremors: 3 Anxiety: 5 Agitation: 3 Paroxysmal Sweats: 1-Minimal Palms Moist Orientation: 0-Oriented Tacttile Disturbances: 1-Very Mild Itch/Numbness Auditory Disturbances: 0-None Visual Disturbances: 2-Mild Sensitivity Headache: 0-None Present CIWA-Ar Total Score: 18 BHS COWS - Scale Resting Pulse: 1= [place] 81-100 Sweatin= Chills/Flushing Restless Observation: 1= Difficult to Sit Still Pupil Size: 0= Normal to Room Light Bone or Joint Aches: 1= Mild Discomfort Runny Nose/ Eye Tearin= Runny Nose/Eyes GI Upset > 30mins: 2= Nausea/Diarrhea Tremor Observation of Outstretched Hands: 0= None Yawning Observation: 1= 1-2x During Session Anxiety or Irritability: 2=Irritable/Anxious Goose Flesh Skin: 3=Piloerection COWS Score: 14 S Progress Note (SOAP) Subjective: Nausea, Interrupted sleep, Anxiety. Objective: PT. A & O X 3,. NO ACUTE DISTRESS. PT. DENIES CHEST PAIN. 12/16/16 19:14 Vital Signs Temperature 98.8 F 12/16/16 18:22 Pulse Rate 83 12/16/16 18:22 Respiratory Rate 16 12/16/16 18:22 Blood Pressure 132/89 12/16/16 18:22 O2 Sat by Pulse Oximetry (%) Laboratory Tests 12/15/16 12/16/16 12/16/16 21:52 07:50 07:50 WBC 4.3 RBC 4.04 Hgb 13.6 Hct 40.3 MCV 99.6 H MCH 33.5 MCHC 33.7 RDW 13.7 Plt Count 212 MPV 8.3 Sodium Potassium Chloride Carbon Dioxide Anion Gap BUN Creatinine Creat Clearance w eGFR Random Glucose Calcium Total Bilirubin AST ALT Alkaline Phosphatase Total Protein Albumin Urine Color Yellow Urine Appearance Turbid Urine pH 5.0 Ur Specific [place] 1.025 Urine Protein 1+ H Urine Glucose (UA) Negative Urine Ketones Negative Urine Blood Negative Urine Nitrite Negative Urine Bilirubin Negative Urine Urobilinogen Negative Ur Leukocyte Esterase Negative Urine RBC 4 Urine WBC None Amorphous Urates Many Urine Mucus Many HIV 1&2 Antibody Screen Negative HIV P24 Antigen Negative 12/16/16 07:50 WBC RBC Hgb Hct MCV MCH MCHC RDW Plt Count MPV Sodium 138 Potassium 4.0 Chloride 102 Carbon Dioxide 28 Anion Gap 8 BUN 19 H Creatinine 0.9 Creat Clearance w eGFR > 60 Random Glucose 102 Calcium 9.1 Total Bilirubin 0.6 D AST 184 H D ALT 263 H D Alkaline Phosphatase 238 H D Total Protein 7.6 Albumin 3.5 Urine Color Urine Appearance Urine pH Ur Specific [place] Urine Protein Urine Glucose (UA) Urine Ketones Urine Blood Urine Nitrite Urine Bilirubin Urine Urobilinogen Ur Leukocyte Esterase Urine RBC Urine WBC Amorphous Urates Urine Mucus HIV 1&2 Antibody Screen HIV P24 Antigen LABS NOTED. RPR RESULT PENDING. 12/16/16 19:15 Assessment: 12/16/16 19:14 WITHDRAWAL SYMPTOMS. Plan: CONTINUE DETOX. HEPATIC FUNCTION PANEL ON 12/18/2016 FOR ADMISSION LIVER ENZYME ABNORMALITIES.
[2016-12-16] MEDS: THIAMINE HCL 100 MG TABLET (FP) PO SCH (23:09)
[2016-12-16] MEDS: diphenhydrAMINE HCL 50 MG CAPSULE PO PRN (23:10)
[2016-12-17] MEDS: diphenhydrAMINE HCL 50 MG CAPSULE PO PRN (01:39)
[2016-12-17] MEDS: chlordiazePOXIDE HCL 25 MG CAPSULE PO PRN ×3 (01:39→19:57)
[2016-12-17] MEDS: chlordiazePOXIDE HCL 25 MG CAPSULE PO SCH ×3 (05:27→17:37)
[2016-12-17] MEDS: PRENATAL VITAMINS W/ FOLIC ACID TABLET (FP) PO SCH (10:44)
[2016-12-17] MEDS: METHADONE HCL 5 MG TABLET (FOR DETOX USE ONLY) PO SCH (10:44)
[2016-12-17] MEDS: NICOTINE 21 MG/24 HOURS TOPICAL PATCH TD SCH (10:44)
[2016-12-17] MEDS ORDERED: CYCLOBENZAPRINE HCL 10 MG TABLET (FP) PO PRN (11:27)
--- NOTE | 2016-12-17 16:18 | PN ---
S CIWA - CIWA Score Nausea/Vomitin Muscle Tremors: 4-Moderate,w/Arms Extend Anxiety: 4-Mod. Anxious/Guarded Agitation: 4-Moderately Restless Paroxysmal Sweats: 3 Orientation: 0-Oriented Tacttile Disturbances: 1-Very Mild Itch/Numbness Auditory Disturbances: 0-None Visual Disturbances: 0-None Headache: 2-Mild CIWA-Ar Total Score: 21 BHS COWS - Scale Resting Pulse: 1= [place] 81-100 Sweatin= Chills/Flushing Restless Observation: 3= Extraneous Movement Pupil Size: 0= Normal to Room Light Bone or Joint Aches: 2= Severe Diffuse Aches Runny Nose/ Eye Tearin= Runny Nose/Eyes GI Upset > 30mins: 1= Stomach Cramp Tremor Observation of Outstretched Hands: 2= Slight Tremor Visible Yawning Observation: 2= >3x During Session Anxiety or Irritability: 2=Irritable/Anxious Goose Flesh Skin: 0=Smooth Skin COWS Score: 16 S Progress Note (SOAP) Subjective: Anxious, sweating, tremor, chills, muscle contraction, interrupted sleep Objective: 12/17/16 16:17 Last Vital Signs Temp Pulse Resp BP Pulse Ox 97.1 F L 86 18 133/93 12/17/16 13:16 12/17/16 13:16 12/17/16 13:16 12/17/16 13:16 Laboratory Tests 12/15/16 12/16/16 12/16/16 21:52 07:50 07:50 WBC 4.3 RBC 4.04 Hgb 13.6 Hct 40.3 MCV 99.6 H MCH 33.5 MCHC 33.7 RDW 13.7 Plt Count 212 MPV 8.3 Sodium Potassium Chloride Carbon Dioxide Anion Gap BUN Creatinine Creat Clearance w eGFR Random Glucose Calcium Total Bilirubin AST ALT Alkaline Phosphatase Total Protein Albumin Urine Color Yellow Urine Appearance Turbid Urine pH 5.0 Ur Specific [place] 1.025 Urine Protein 1+ H Urine Glucose (UA) Negative Urine Ketones Negative Urine Blood Negative Urine Nitrite Negative Urine Bilirubin Negative Urine Urobilinogen Negative Ur Leukocyte Esterase Negative Urine RBC 4 Urine WBC None Amorphous Urates Many Urine Mucus Many RPR Titer HIV 1&2 Antibody Screen Negative HIV P24 Antigen Negative 12/16/16 12/16/16 07:50 07:50 WBC RBC Hgb Hct MCV MCH MCHC RDW Plt Count MPV Sodium 138 Potassium 4.0 Chloride 102 Carbon Dioxide 28 Anion Gap 8 BUN 19 H Creatinine 0.9 Creat Clearance w eGFR > 60 Random Glucose 102 Calcium 9.1 Total Bilirubin 0.6 D AST 184 H D ALT 263 H D Alkaline Phosphatase 238 H D Total Protein 7.6 Albumin 3.5 Urine Color Urine Appearance Urine pH Ur Specific [place] Urine Protein Urine Glucose (UA) Urine Ketones Urine Blood Urine Nitrite Urine Bilirubin Urine Urobilinogen Ur Leukocyte Esterase Urine RBC Urine WBC Amorphous Urates Urine Mucus RPR Titer Nonreactive HIV 1&2 Antibody Screen HIV P24 Antigen Labs noted: abnormal UA Assessment: 12/17/16 16:18 Withdrawal symptoms Noted with abnormal UA Plan: Continue detox Abnormal UA: encouraged to drink lots of water, repeat UA
[2016-12-17] MEDS ORDERED: ZOLPIDEM TARTRATE 10 MG TABLET (PARK CARE ONLY) PO PRN (22:00)
[2016-12-17] MEDS: THIAMINE HCL 100 MG TABLET (FP) PO SCH (22:12)
[2016-12-17] MEDS: chlordiazePOXIDE 5 MG CAPSULE PO SCH (22:12)
[2016-12-18] MEDS: diphenhydrAMINE HCL 50 MG CAPSULE PO PRN (02:01)
[2016-12-18] MEDS: chlordiazePOXIDE 5 MG CAPSULE PO SCH ×2 (05:09→10:18)
--- NOTE | 2016-12-18 08:33 | PN ---
BHS Progress Note (SOAP) Subjective: nausa, sweats, interrupted sleep, anxiety, tremors Objective: 12/18/16 08:32 Vital Signs - 24 hr 12/17/16 12/17/16 12/17/16 09:30 13:16 18:04 Temperature 98.4 F 97.1 F L 96.4 F L Pulse Rate 74 86 66 Respiratory 18 18 18 Rate Blood Pressure 144/95 133/93 137/90 12/17/16 12/18/16 12/18/16 22:17 00:30 03:38 Temperature 98.5 F Pulse Rate 72 Respiratory 18 18 18 Rate Blood Pressure 136/91 12/18/16 06:27 Temperature 97.1 F L Pulse Rate 85 Respiratory 18 Rate Blood Pressure 142/87 Laboratory Tests 12/15/16 12/16/16 12/16/16 21:52 07:50 07:50 WBC 4.3 RBC 4.04 Hgb 13.6 Hct 40.3 MCV 99.6 H MCH 33.5 MCHC 33.7 RDW 13.7 Plt Count 212 MPV 8.3 Sodium Potassium Chloride Carbon Dioxide Anion Gap BUN Creatinine Creat Clearance w eGFR Random Glucose Calcium Total Bilirubin AST ALT Alkaline Phosphatase Total Protein Albumin Urine Color Yellow Urine Appearance Turbid Urine pH 5.0 Ur Specific [employer] 1.025 Urine Protein 1+ H Urine Glucose (UA) Negative Urine Ketones Negative Urine Blood Negative Urine Nitrite Negative Urine Bilirubin Negative Urine Urobilinogen Negative Ur Leukocyte Esterase Negative Urine RBC 4 Urine WBC None Amorphous Urates Many Urine Mucus Many RPR Titer HIV 1&2 Antibody Screen Negative HIV P24 Antigen Negative 12/16/16 12/16/16 07:50 07:50 WBC RBC Hgb Hct MCV MCH MCHC RDW Plt Count MPV Sodium 138 Potassium 4.0 Chloride 102 Carbon Dioxide 28 Anion Gap 8 BUN 19 H Creatinine 0.9 Creat Clearance w eGFR > 60 Random Glucose 102 Calcium 9.1 Total Bilirubin 0.6 D AST 184 H D ALT 263 H D Alkaline Phosphatase 238 H D Total Protein 7.6 Albumin 3.5 Urine Color Urine Appearance Urine pH Ur Specific [employer] Urine Protein Urine Glucose (UA) Urine Ketones Urine Blood Urine Nitrite Urine Bilirubin Urine Urobilinogen Ur Leukocyte Esterase Urine RBC Urine WBC Amorphous Urates Urine Mucus RPR Titer Nonreactive HIV 1&2 Antibody Screen HIV P24 Antigen Assessment: 12/18/16 08:33 withdrawal sx Plan: cont detox., fluids, hep c test ordered
[2016-12-18 09:16] VITALS: BP 129/95; PULSE 89; TEMP 97
[2016-12-18] MEDS ORDERED: ZOLPIDEM TARTRATE 10 MG TABLET (PARK CARE ONLY) PO PRN (09:29)
--- NOTE | 2016-12-18 09:32 | PN ---
[facility] Progress Note Note: Patient does not wishe to complete methadone detox but what like to go directly to [facility] methadone clinic. will give regular discharge now , referred to counselor to arrange for [facility]MTP admission ideally today.
--- NOTE | 2016-12-18 09:36 | DS ---
[facility] Detox Discharge Summary Admission Date: 12/15/16 Discharge Date: 12/18/16 - History Present History: Alcohol Dependence, Opioid Dependence Pertinent Past History: COPD, anxiety, depression, insomnia - Physical Exam Results Vital Signs: Vital Signs Temperature 97.0 F L 12/18/16 09:15 Pulse Rate 89 12/18/16 09:15 Respiratory Rate 18 12/18/16 09:15 Blood Pressure 129/95 12/18/16 09:15 O2 Sat by Pulse Oximetry (%) Laboratory Tests 12/15/16 12/16/16 12/16/16 21:52 07:50 07:50 WBC 4.3 RBC 4.04 Hgb 13.6 Hct 40.3 MCV 99.6 H MCH 33.5 MCHC 33.7 RDW 13.7 Plt Count 212 MPV 8.3 Sodium Potassium Chloride Carbon Dioxide Anion Gap BUN Creatinine Creat Clearance w eGFR Random Glucose Calcium Total Bilirubin AST ALT Alkaline Phosphatase Total Protein Albumin Urine Color Yellow Urine Appearance Turbid Urine pH 5.0 Ur Specific [place] 1.025 Urine Protein 1+ H Urine Glucose (UA) Negative Urine Ketones Negative Urine Blood Negative Urine Nitrite Negative Urine Bilirubin Negative Urine Urobilinogen Negative Ur Leukocyte Esterase Negative Urine RBC 4 Urine WBC None Amorphous Urates Many Urine Mucus Many RPR Titer HIV 1&2 Antibody Screen Negative HIV P24 Antigen Negative 12/16/16 12/16/16 07:50 07:50 WBC RBC Hgb Hct MCV MCH MCHC RDW Plt Count MPV Sodium 138 Potassium 4.0 Chloride 102 Carbon Dioxide 28 Anion Gap 8 BUN 19 H Creatinine 0.9 Creat Clearance w eGFR > 60 Random Glucose 102 Calcium 9.1 Total Bilirubin 0.6 D AST 184 H D ALT 263 H D Alkaline Phosphatase 238 H D Total Protein 7.6 Albumin 3.5 Urine Color Urine Appearance Urine pH Ur Specific [place] Urine Protein Urine Glucose (UA) Urine Ketones Urine Blood Urine Nitrite Urine Bilirubin Urine Urobilinogen Ur Leukocyte Esterase Urine RBC Urine WBC Amorphous Urates Urine Mucus RPR Titer Nonreactive HIV 1&2 Antibody Screen HIV P24 Antigen elevated LFTs Pertinent Admission Physical Exam Findings: withdrawal sx - Treatment Hospital Course: Detox Protocol Followed, Detoxed Safely, Responded well, Discharged Condition Good, Rehab Referral Accepted - Medication Discharge Medications: Ambulatory Orders NK [No Known Home Medication] 03/19/14 - Diagnosis (1) Alcohol dependence with uncomplicated withdrawal Current Visit: Yes Status: Chronic (2) Opioid dependence with withdrawal Current Visit: Yes Status: Chronic (3) COPD (chronic obstructive pulmonary disease) Current Visit: Yes Status: Chronic Qualifiers: COPD type: emphysema Emphysema type: other Qualified Code(s): J43.8 - Other emphysema (4) Decreased range of motion of right shoulder Current Visit: Yes Status: Chronic (5) Nicotine dependence Current Visit: Yes Status: Chronic Qualifiers: (6) Substance induced mood disorder Current Visit: No Status: Acute (7) Cocaine dependence Current Visit: No Status: Chronic Qualifiers: Substance use status: uncomplicated Qualified Code(s): F14.20 - Cocaine dependence, uncomplicated (8) Substance-induced sleep disorder Current Visit: No Status: Chronic (9) Uncomplicated opioid dependence without intoxication Current Visit: No Status: Chronic (10) Weight loss Current Visit: No Status: Inactive
[2016-12-18] MEDS ORDERED: NAPROXEN 500 MG TABLET (FP) PO SCH (10:00)
[2016-12-18] MEDS ORDERED: cloNIDine HCL 0.1 MG TABLET PO SCH (10:00)
[2016-12-18] MEDS: METHADONE HCL 5 MG TABLET (FOR DETOX USE ONLY) PO SCH (10:18)
[2016-12-18] MEDS: PRENATAL VITAMINS W/ FOLIC ACID TABLET (FP) PO SCH (10:18)
[2016-12-18] MEDS: NICOTINE 21 MG/24 HOURS TOPICAL PATCH TD SCH (10:18)
[2016-12-18 10:24] LABS: ALBUMIN 3.8 g/dl (3.4-5.0); BILIRUBIN,DIRECT 0.2 mg/dL (0.0-0.2); BILIRUBIN,TOTAL 0.7 mg/dL (0.2-1.0); TOT PROT 8.2 g/dl (6.4-8.2)
[2016-12-18] MEDS ORDERED: chlordiazePOXIDE HCL 10 MG CAPSULE PO SCH (23:00)
[2016-12-19] MEDS ORDERED: METHADONE HCL 10 MG TABLET (FOR DETOX USE ONLY) PO SCH (10:00)
[2016-12-20] MEDS ORDERED: METHADONE HCL 5 MG TABLET (FOR DETOX USE ONLY) PO SCH (06:00)
[2016-12-21 00:06] LABS: HCV LOG 10 5.732 (.)
== END 2016-12-18 10:30 | disposition left against medical advice (07) | DRG 770 ==
LOC: YASAS 17:50 → Y3N 18:58
PROVIDERS: ADMIT Internal Medicine Addiction Medicine; ATTEND Internal Medicine Addiction Medicine
PROC: HZ2ZZZZ Detoxification Services for Substance Abuse Treatment (ICD-10-PCS; principal; 2016-12-15)
DX: F11.23 Opioid dependence with withdrawal (principal); F10.230 Alcohol dependence with withdrawal, uncomplicated; F14.20 Cocaine dependence, uncomplicated; F17.210 Nicotine dependence, cigarettes, uncomplicated; F19.24 Other psychoactive substance dependence with psychoactive substance-induced mood disorder; F19.282 Other psychoactive substance dependence with psychoactive substance-induced sleep disorder; J43.8 Other emphysema; R29.898 Other symptoms and signs involving the musculoskeletal system; R82.90 Unspecified abnormal findings in urine; Z87.898 Personal history of other specified conditions
CPT/HCPCS: 36415; 80053; 80076; 81003; 81015; 85027; 86593; 86803; 87389; 87522; 93005; 93010

== ENCOUNTER 2017-04-10 16:12 | Inpatient (IN) | payer OTHER ==
[2017-04-10 17:12] VITALS: BMI 24.8
--- NOTE | 2017-04-10 21:38 | HP ---
CIWA Score - CIWA Score Nausea/Vomitin-Mild Nausea/No Vomiting Muscle Tremors: 4-Moderate,w/Arms Extend Anxiety: 4-Mod. Anxious/Guarded Agitation: 4-Moderately Restless Paroxysmal Sweats: 1-Minimal Palms Moist Orientation: 0-Oriented Tacttile Disturbances: 1-Very Mild Itch/Numbness Auditory Disturbances: 0-None Visual Disturbances: 0-None Headache: 0-None Present CIWA-Ar Total Score: 15 Admission ROS BHS - HPI Chief Complaint: withdrawal sx Allergies/Adverse Reactions: Allergies Allergy/AdvReac Type Severity Reaction Status Date / Time No Known Allergies Allergy Verified 04/10/17 19:07 History of Present Illness: 46 years old male with long history of alcohol nicotine dependence has hepatitis c and depression in methadone program 80 mg daily is admitted to detox Exam Limitations: No Limitations - Ebola screening Have you traveled outside of the country in the last 21 days: No Have you had contact with anyone from an Ebola affected area: No Have you been sick,other than usual withdrawal symptoms: No Do you have a fever: No - Review of Systems Constitutional: Loss of Appetite, Unintentional Wgt. Loss, Unexplained wgt Loss EENT: reports: Blurred Vision (eye glasses) Respiratory: reports: No Symptoms reported Cardiac: reports: No Symptoms Reported GI: reports: Nausea, Poor Appetite, Poor Fluid Intake, Abdominal cramping : reports: No Symptoms Reported Musculoskeletal: reports: No Symptoms Reported Integumentary: reports: Change in Hair/Nails (left inner elbow) Neuro: reports: Tremors Endocrine: reports: No Symptoms Reported Hematology: reports: No Symptoms Reported Psychiatric: reports: Judgement Intact, Orientated x3, Depressed Other Systems: Reviewed and Negative Patient History - Patient Medical History Hx Anemia: No Hx Asthma: No Hx Chronic Obstructive Pulmonary Disease (COPD): No Hx Cancer: No Hx Cardiac Disorders: No Hx Congestive Heart Failure: No Hx Hypertension: No Hx Hypercholesterolemia: No Hx Pacemaker: No HX Cerebrovascular Accident: No Hx Seizures: No Hx Dementia: No Hx Diabetes: No Hx Gastrointestinal Disorders: No Hx Liver Disease: No Hx Genitourinary Disorders: No Hx Sexually Transmitted Disorders: No Hx Renal Disease (ESRD): No Hx Thyroid Disease: No Hx Human Immunodeficiency Virus (HIV): No Hx Hepatitis C: Yes Hx Depression: Yes Hx Suicide Attempt: No Hx Bipolar Disorder: No Hx Schizophrenia: No - Patient Surgical History Past Surgical History: No Hx Neurologic Surgery: No Hx Cataract Extraction: No Hx Cardiac Surgery: No Hx Lung Surgery: No Hx Breast Surgery: No Hx Breast Biopsy: No Hx Abdominal Surgery: No Hx Appendectomy: No Hx Cholecystectomy: No Hx Genitourinary Surgery: No Hx Orthopedic Surgery: No - PPD History Previous Implant?: Yes Documented Results: Negative w/proof Implanted On Prior [facility] Admission?: Yes Date: 12/17/16 Results: 0 mm PPD to be Administered?: No - Smoking Cessation Smoking history: Current every day smoker Have you smoked in the past 12 months: Yes Aproximately how many cigarettes per day: 20 Cigars Per Day: 0 Hx Chewing Tobacco Use: No Initiated information on smoking cessation: Yes 'Breaking Loose' booklet given: 04/10/17 - Substance & Tx. History Hx Alcohol Use: Yes Hx Substance Use: No Substance Use Type: Alcohol Hx Substance Use Treatment: Yes (12/2016) - Substances Abused Alcohol Route: Oral Frequency: Daily Amount used: LIQUOR- 3 PINTS vodka Age of first use: 16 Date of Last Use: 04/10/17 Family Disease History - Family Disease History Family Disease History: Diabetes: Mother, Heart Disease: Father, Other: Brother (no brother) Admission Physical Exam S - Vital Signs Vital Signs: Vital Signs - 24 hr 04/10/17 04/10/17 17:07 21:28 Temperature 96.8 F L 96.8 F L Pulse Rate 90 90 Respiratory 18 18 Rate Blood Pressure 136/73 136/73 - Physical General Appearance: Yes: Appropriately Dressed, Mild Distress, Alcohol on Breath , Thin, Tremorous, Irritable, Sweating, Anxious HEENTM: Yes: Hearing grossly Normal, Normal ENT Inspection, Normocephalic, Normal Voice Respiratory: Yes: Chest Non-Tender, No Respiratory Distress, No Accessory Muscle Use, Hyperresonant Neck: Yes: Supple, Trachea in good position Breast: Yes: Breasts Symetrical Cardiology: Yes: Regular Rhythm, Regular Rate, S1, S2 Abdominal: Yes: Non Tender, Soft, Increased Bowel Sounds Genitourinary: Yes: Within Normal Limits Back: Yes: Normal Inspection Musculoskeletal: Yes: full range of Motion, Gait Steady Extremities: Yes: Normal Range of Motion, Non-Tender, Tremors Neurological: Yes: Fully Oriented, Alert, Motor Strength 5/5, Normal Response, Depressed Affect Integumentary: Yes: Warm Lymphatic: Yes: Within Normal Limits - Diagnostic (1) Hepatitis C Current Visit: Yes Status: Chronic Qualifiers: Viral hepatitis chronicity: carrier Qualified Code(s): B18.2 - Chronic viral hepatitis C (2) Weight loss Current Visit: Yes Status: Acute (3) Depression (emotion) Current Visit: Yes Status: Suspected Qualifiers: Depression Type: dysthymia Qualified Code(s): F34.1 - Dysthymic disorder (4) Alcohol dependence with uncomplicated withdrawal Current Visit: Yes Status: Acute (5) Nicotine dependence Current Visit: Yes Status: Acute Qualifiers: Nicotine product type: cigarettes Substance use status: in withdrawal Qualified Code(s): F17.213 - Nicotine dependence, cigarettes, with withdrawal Cleared for Admission S - Detox or Rehab [facility] Level of Care: Medically Managed Detox Regimen/Protocol: Librium S Breath Alcohol Content Breath Alcohol Content: 0.242 Urine Drug Screen - Control Is Test Valid: Yes - Results Drug Screen Negative: No Urine Drug Screen Results: OPI-Opiates, MTD-Methadone, OXY-Oxycodone
[2017-04-10] MEDS ORDERED: MENTHOL/PHENOL 1 EACH UD MM PRN (21:47)
[2017-04-10] MEDS ORDERED: guaiFENesin/D-METHORPHAN HB 10 ML UNIT-DOSE CUPS PO PRN (21:47)
[2017-04-10] MEDS ORDERED: LOPERAMIDE HCL 2 MG CAPSULE PO PRN (21:47)
[2017-04-10] MEDS ORDERED: IBUPROFEN 400 MG TABLET (FP) PO PRN (21:47)
[2017-04-10] MEDS ORDERED: ACETAMINOPHEN 325 MG TABLET (FP) PO PRN (21:47)
[2017-04-10] MEDS ORDERED: MAGNESIUM CITRATE 300 ML BOTTLE PO PRN (21:47)
[2017-04-10] MEDS ORDERED: P-EPHED 60MG/TRIPROLIDI 2.5MG TABLET PO PRN (21:47)
[2017-04-10] MEDS ORDERED: MAG HYDROX/AL HYDROX/SIMETH 30 ML UNIT-DOSE CUP PO PRN (21:47)
[2017-04-10] MEDS ORDERED: chlordiazePOXIDE HCL 25 MG CAPSULE PO PRN (21:47)
[2017-04-10] MEDS ORDERED: MAGNESIUM HYDROX 2400MG/30ML ORAL SUSPENSION 30 ML CUP PO PRN (21:47)
[2017-04-10 23:54] LABS: URINE APPEARANCE CLEAR; URINE BILIRUBIN NEGATIVE (NEGATIVE); URINE BLOOD NEGATIVE (NEGATIVE); URINE COLOR YELLOW; URINE GLUCOSE (UA) NEGATIVE (NEGATIVE); URINE KETONE NEGATIVE (NEGATIVE); URINE LEUK ESTERASE NEGATIVE (NEGATIVE); URINE NITRITE NEGATIVE (NEGATIVE); URINE PROTEIN NEGATIVE (NEGATIVE); URINE UROBILINOGEN NEGATIVE mg/dL (0.2-1.0)
[2017-04-10] MEDS: chlordiazePOXIDE HCL 25 MG CAPSULE PO SCH (23:59)
[2017-04-10] MEDS: THIAMINE HCL 100 MG TABLET (FP) PO SCH (23:59)
[2017-04-10] MEDS: MINERAL OIL/PETROLAT/WATER TOPICAL CREAM 113 GM JAR TP SCH (23:59)
[2017-04-11] MEDS: chlordiazePOXIDE HCL 25 MG CAPSULE PO SCH ×4 (05:18→22:11)
[2017-04-11] MEDS ORDERED: METHADONE HCL 40 MG DISPERSABLE TABLET PO ONE (09:09)
[2017-04-11 09:50] LABS: HEMATOCRIT 39.8 % (35.4-49); HEMOGLOBIN 13.1 GM/dL (11.7-16.9); MCH 32.7 pg (25.7-33.7); MCHC 32.8 g/dl (32.0-35.9); MEAN CELL VOLUME 99.7 fl (80-96); MEAN PLT VOLUME 8.9 fl (7.5-11.1); PLATELET COUNT 183 K/MM3 (134-434); RBC 3.99 M/mm3 (4.00-5.60); RDW 15.1 % (11.9-15.9); WHITE BLOOD COUNT 4.3 K/mm3 (4.0-10.0)
[2017-04-11 09:58] LABS: CHLORIDE 106 mmol/L (98-107); POTASSIUM 3.9 mmol/L (3.5-5.1); SODIUM 143 mmol/L (136-145)
[2017-04-11 10:06] LABS: ALBUMIN 3.7 g/dl (3.4-5.0); ALK PHOS 155 U/L (45-117); ANION GAP 10 (8-16); BILIRUBIN,TOTAL 0.6 mg/dL (0.2-1.0); BLOOD UREA NITROGEN 19 mg/dL (7-18); CALCIUM 9.5 mg/dL (8.5-10.1); CO2 27 mmol/L (21-32); CREATININE 0.8 mg/dL (0.7-1.3); GLUCOSE,RANDOM 79 mg/dL (74-106); SGOT/AST 160 U/L (15-37); SGPT/ALT 224 U/L (12-78); TOT PROT 7.6 g/dl (6.4-8.2)
[2017-04-11] MEDS: PRENATAL VITAMINS W/ FOLIC ACID TABLET (FP) PO SCH (10:23)
--- NOTE | 2017-04-11 13:20 | PN ---
[facility] CIWA - CIWA Score Nausea/Vomitin-No Nausea/No Vomiting Muscle Tremors: 4-Moderate,w/Arms Extend Anxiety: 4-Mod. Anxious/Guarded Agitation: 4-Moderately Restless Paroxysmal Sweats: 1-Minimal Palms Moist Orientation: 0-Oriented Tacttile Disturbances: 3-Moderate Itch/Numb/Burn Auditory Disturbances: 0-None Visual Disturbances: 0-None Headache: 0-None Present CIWA-Ar Total Score: 16 BHS Progress Note (SOAP) Subjective: SLIGHT ANXIETY,SWEATS,TREMORS. Objective: 04/11/17 13:20 Vital Signs Temperature 97.7 F 04/11/17 09:17 Pulse Rate 88 04/11/17 09:17 Respiratory Rate 18 04/11/17 09:17 Blood Pressure 130/86 04/11/17 09:17 O2 Sat by Pulse Oximetry (%) Laboratory Last Values WBC 4.3 K/mm3 (4.0-10.0) 04/11/17 07:30 RBC 3.99 M/mm3 (4.00-5.60) L 04/11/17 07:30 Hgb 13.1 GM/dL (11.7-16.9) 04/11/17 07:30 Hct 39.8 % (35.4-49) 04/11/17 07:30 MCV 99.7 fl (80-96) H 04/11/17 07:30 MCH 32.7 pg (25.7-33.7) 04/11/17 07:30 MCHC 32.8 g/dl (32.0-35.9) 04/11/17 07:30 RDW 15.1 % (11.9-15.9) D 04/11/17 07:30 Plt Count 183 K/MM3 (134-434) 04/11/17 07:30 MPV 8.9 fl (7.5-11.1) 04/11/17 07:30 Sodium 143 mmol/L (136-145) 04/11/17 07:30 Potassium 3.9 mmol/L (3.5-5.1) 04/11/17 07:30 Chloride 106 mmol/L (98-107) 04/11/17 07:30 Carbon Dioxide 27 mmol/L (21-32) 04/11/17 07:30 Anion Gap 10 (8-16) 04/11/17 07:30 BUN 19 mg/dL (7-18) H 04/11/17 07:30 Creatinine 0.8 mg/dL (0.7-1.3) 04/11/17 07:30 Creat Clearance w eGFR > 60 (>60) 04/11/17 07:30 Random Glucose 79 mg/dL (74-106) D 04/11/17 07:30 Calcium 9.5 mg/dL (8.5-10.1) 04/11/17 07:30 Total Bilirubin 0.6 mg/dL (0.2-1.0) 04/11/17 07:30 AST 160 U/L (15-37) H D 04/11/17 07:30 ALT 224 U/L (12-78) H 04/11/17 07:30 Alkaline Phosphatase 155 U/L (45-117) H D 04/11/17 07:30 Total Protein 7.6 g/dl (6.4-8.2) 04/11/17 07:30 Albumin 3.7 g/dl (3.4-5.0) 04/11/17 07:30 Urine Color Yellow 04/10/17 22:40 Urine Appearance Clear 04/10/17 22:40 Urine pH 5.0 (5.0-8.0) 04/10/17 22:40 Ur Specific [place] 1.020 (1.001-1.035) 04/10/17 22:40 Urine Protein Negative (NEGATIVE) 04/10/17 22:40 Urine Glucose (UA) Negative (NEGATIVE) 04/10/17 22:40 Urine Ketones Negative (NEGATIVE) 04/10/17 22:40 Urine Blood Negative (NEGATIVE) 04/10/17 22:40 Urine Nitrite Negative (NEGATIVE) 04/10/17 22:40 Urine Bilirubin Negative (NEGATIVE) 04/10/17 22:40 Urine Urobilinogen Negative mg/dL (0.2-1.0) 04/10/17 22:40 Ur Leukocyte Esterase Negative (NEGATIVE) 04/10/17 22:40 RPR Titer Nonreactive (NONREACTIVE) 04/11/17 07:30 Assessment: 04/11/17 13:20 WITHDRAWAL SX Plan: CONTINUE DETOX
--- NOTE | 2017-04-11 13:32 | EKG ---
Test Reason : Blood Pressure : / mmHG Vent. Rate : 065 BPM Atrial Rate : 065 BPM P-R Int : 190 ms QRS Dur : 094 ms QT Int : 430 ms P-R-T Axes : 065 050 054 degrees QTc Int : 447 ms NORMAL SINUS RHYTHM NORMAL ECG WHEN COMPARED WITH ECG OF 15-DEC-2016 22:11, NO SIGNIFICANT CHANGE WAS FOUND Confirmed by NICOLE SANDY MD ([id number]) on 04/11/2017 1:32:31 PM Referred By: Confirmed By:NICOLE SANDY MD
--- NOTE | 2017-04-11 13:57 | CONSULT ---
[facility] Psychiatric Consult - Data Date of interview: 04/11/17 Admission source: [facility] Identifying data: One of multiple admissions to [facility] for this 46 y/o AA male seeking detox treatment on for alcohol and heroin dependence.Patient is single without children,domiciled and supported on Public Assistance. Substance Abuse History: Confirmed by patient.See current [facility] report for details : Smoking history: Current every day smoker. Have you smoked in the past 12 months: Yes. Aproximately how many cigarettes per day: 20. Cigars Per Day: 0. Hx Chewing Tobacco Use: No. Initiated information on smoking cessation : Yes. 'Breaking Loose' booklet given: 04/10/17. - Substance & Tx. History. Hx Alcohol Use: Yes. Hx Substance Use: No. Substance Use Type: Alcohol. Hx Substance Use Treatment: Yes (12/2016). - Substances Abused. Alcohol. Route : Oral. Frequency: Daily. Amount used: LIQUOR- 3 PINTS vodka. Age of first use: 16. Date of Last Use: 04/10/17 Medical History: Remote history of injury to right shoulder (2013) with atrophy of right arm. Psychiatric History: Patient denies history of psychiatric hospitalizations.He is however known to [facility] (detoxification treatment in 1999).No history of OPD care.Patient denies suicide attempts.Currently on methadone maintenance (80 mg/day). Physical/Sexual Abuse/Trauma History: Patient denies. Additional Comment: Urine Drug Screen Results: OPI-Opiates, MTD-Methadone, OXY- Oxycodone.Noted. Mental Status Exam - Mental Status Exam Alert and Oriented to: Time, Place, Person Cognitive Function: Good Patient Appearance: Well Groomed Mood: Hopeful, Euthymic Affect: Appropriate, Normal Range Patient Behavior: Cooperative Speech Pattern: Clear, Appropriate Voice Loudness: Normal Thought Process: Intact, Goal Oriented Thought Disorder: Not Present Hallucinations: Denies Suicidal Ideation: Denies Homicidal Ideation: Denies Insight/Judgement: Poor Sleep: Well Appetite: Good Muscle strength/Tone: Normal Gait/Station: Normal Psychiatric Findings - Problem List ([place] 1, 2,3) (1) Opioid dependence on agonist therapy Current Visit: Yes Status: Acute (2) Alcohol dependence with uncomplicated withdrawal Current Visit: Yes Status: Acute (3) Nicotine dependence Current Visit: Yes Status: Acute Qualifiers: Nicotine product type: cigarettes Substance use status: in withdrawal Qualified Code(s): F17.213 - Nicotine dependence, cigarettes, with withdrawal - Initial Treatment Plan Initial Treatment Plan: Psychoeducation and support.Detoxification in progress.Observation.
[2017-04-11] MEDS: MINERAL OIL/PETROLAT/WATER TOPICAL CREAM 113 GM JAR TP SCH (22:10)
[2017-04-11] MEDS: THIAMINE HCL 100 MG TABLET (FP) PO SCH (22:11)
[2017-04-12] MEDS: chlordiazePOXIDE HCL 25 MG CAPSULE PO SCH (05:41)
[2017-04-12] MEDS ORDERED: METHADONE HCL 40 MG DISPERSABLE TABLET PO SCH (06:00)
[2017-04-12] MEDS: PRENATAL VITAMINS W/ FOLIC ACID TABLET (FP) PO SCH (10:21)
--- NOTE | 2017-04-12 10:30 | PN ---
[facility] CIWA - CIWA Score Nausea/Vomitin-No Nausea/No Vomiting Muscle Tremors: 4-Moderate,w/Arms Extend Anxiety: 4-Mod. Anxious/Guarded Agitation: 4-Moderately Restless Paroxysmal Sweats: 1-Minimal Palms Moist Orientation: 0-Oriented Tacttile Disturbances: 3-Moderate Itch/Numb/Burn Auditory Disturbances: 0-None Visual Disturbances: 0-None Headache: 0-None Present CIWA-Ar Total Score: 16 BHS Progress Note (SOAP) Subjective: SLIGHT ANXIETY,ALERT O X 3. NAD.OOB WITH STEADY GAIT. Objective: 04/12/17 10:29 Vital Signs Temperature 98.2 F 04/12/17 08:52 Pulse Rate 88 04/12/17 08:52 Respiratory Rate 18 04/12/17 08:52 Blood Pressure 135/91 04/12/17 08:52 O2 Sat by Pulse Oximetry (%) Laboratory Last Values WBC 4.3 K/mm3 (4.0-10.0) 04/11/17 07:30 RBC 3.99 M/mm3 (4.00-5.60) L 04/11/17 07:30 Hgb 13.1 GM/dL (11.7-16.9) 04/11/17 07:30 Hct 39.8 % (35.4-49) 04/11/17 07:30 MCV 99.7 fl (80-96) H 04/11/17 07:30 MCH 32.7 pg (25.7-33.7) 04/11/17 07:30 MCHC 32.8 g/dl (32.0-35.9) 04/11/17 07:30 RDW 15.1 % (11.9-15.9) D 04/11/17 07:30 Plt Count 183 K/MM3 (134-434) 04/11/17 07:30 MPV 8.9 fl (7.5-11.1) 04/11/17 07:30 Sodium 143 mmol/L (136-145) 04/11/17 07:30 Potassium 3.9 mmol/L (3.5-5.1) 04/11/17 07:30 Chloride 106 mmol/L (98-107) 04/11/17 07:30 Carbon Dioxide 27 mmol/L (21-32) 04/11/17 07:30 Anion Gap 10 (8-16) 04/11/17 07:30 BUN 19 mg/dL (7-18) H 04/11/17 07:30 Creatinine 0.8 mg/dL (0.7-1.3) 04/11/17 07:30 Creat Clearance w eGFR > 60 (>60) 04/11/17 07:30 Random Glucose 79 mg/dL (74-106) D 04/11/17 07:30 Calcium 9.5 mg/dL (8.5-10.1) 04/11/17 07:30 Total Bilirubin 0.6 mg/dL (0.2-1.0) 04/11/17 07:30 AST 160 U/L (15-37) H D 04/11/17 07:30 ALT 224 U/L (12-78) H 04/11/17 07:30 Alkaline Phosphatase 155 U/L (45-117) H D 04/11/17 07:30 Total Protein 7.6 g/dl (6.4-8.2) 04/11/17 07:30 Albumin 3.7 g/dl (3.4-5.0) 04/11/17 07:30 Urine Color Yellow 04/10/17 22:40 Urine Appearance Clear 04/10/17 22:40 Urine pH 5.0 (5.0-8.0) 04/10/17 22:40 Ur Specific [place] 1.020 (1.001-1.035) 04/10/17 22:40 Urine Protein Negative (NEGATIVE) 04/10/17 22:40 Urine Glucose (UA) Negative (NEGATIVE) 04/10/17 22:40 Urine Ketones Negative (NEGATIVE) 04/10/17 22:40 Urine Blood Negative (NEGATIVE) 04/10/17 22:40 Urine Nitrite Negative (NEGATIVE) 04/10/17 22:40 Urine Bilirubin Negative (NEGATIVE) 04/10/17 22:40 Urine Urobilinogen Negative mg/dL (0.2-1.0) 04/10/17 22:40 Ur Leukocyte Esterase Negative (NEGATIVE) 04/10/17 22:40 RPR Titer Nonreactive (NONREACTIVE) 04/11/17 07:30 Assessment: 04/12/17 10:29 WITHDRAWAL SX Plan: CONTINUE DETOX
[2017-04-12] MEDS ORDERED: chlordiazePOXIDE 5 MG CAPSULE PO SCH ×2 (11:00→23:00)
[2017-04-12 13:32] VITALS: BP 120/82; PULSE 73; TEMP 96.9
--- NOTE | 2017-04-12 15:34 | PN ---
S Progress Note Note: patient did not want to complete treatment,seen by counselor,signed release ama
--- NOTE | 2017-04-12 15:38 | DS ---
[facility] Detox Discharge Summary Admission Date: 04/10/17 Discharge Date: 04/12/17 - History Present History: Alcohol Dependence, Cocaine Dependence, MMTP Additional Comments: patient did not want to complete treatment,seen by counselor,signed release ama Pertinent Past History: copd - Physical Exam Results Vital Signs: Vital Signs Temperature 96.9 F L 04/12/17 13:31 Pulse Rate 73 04/12/17 13:31 Respiratory Rate 18 04/12/17 13:31 Blood Pressure 120/82 04/12/17 13:31 O2 Sat by Pulse Oximetry (%) Pertinent Admission Physical Exam Findings: withdrawal symptom Vital Signs Temperature 96.9 F L 04/12/17 13:31 Pulse Rate 73 04/12/17 13:31 Respiratory Rate 18 04/12/17 13:31 Blood Pressure 120/82 04/12/17 13:31 O2 Sat by Pulse Oximetry (%) - Medication Discharge Medications: Ambulatory Orders NK [No Known Home Medication] 03/19/14 - Diagnosis (1) Alcohol dependence with uncomplicated withdrawal Current Visit: Yes Status: Acute (2) Nicotine dependence Current Visit: Yes Status: Acute Qualifiers: Nicotine product type: cigarettes Substance use status: in withdrawal Qualified Code(s): F17.213 - Nicotine dependence, cigarettes, with withdrawal (3) Opioid dependence on agonist therapy Current Visit: Yes Status: Acute (4) Weight loss Current Visit: Yes Status: Acute (5) Hepatitis C Current Visit: Yes Status: Chronic Qualifiers: Viral hepatitis chronicity: carrier Qualified Code(s): B18.2 - Chronic viral hepatitis C (6) COPD (chronic obstructive pulmonary disease) Current Visit: No Status: Chronic Qualifiers: COPD type: emphysema Emphysema type: other Qualified Code(s): J43.8 - Other emphysema - AMA Did Patient Leave Against Medical Advice: Yes
[2017-04-13] MEDS ORDERED: chlordiazePOXIDE HCL 10 MG CAPSULE PO SCH ×2 (05:00→23:00)
== END 2017-04-12 15:55 | disposition left against medical advice (07) | DRG 770 ==
LOC: YASAS 16:12 → Y3N 20:05
PROVIDERS: ADMIT Internal Medicine; ATTEND Internal Medicine
PROC: HZ2ZZZZ Detoxification Services for Substance Abuse Treatment (ICD-10-PCS; principal; 2017-04-10)
DX: F10.230 Alcohol dependence with withdrawal, uncomplicated (principal); F11.20 Opioid dependence, uncomplicated; F17.213 Nicotine dependence, cigarettes, with withdrawal; F34.1 Dysthymic disorder; B18.2 Chronic viral hepatitis C; J43.8 Other emphysema; Z87.898 Personal history of other specified conditions
CPT/HCPCS: 36415; 80053; 81003; 85027; 86593; 93005; 93010

== ENCOUNTER 2017-07-20 10:37 | Inpatient (IN) | payer OTHER ==
[2017-07-20 11:54] VITALS: BMI 27.5
--- NOTE | 2017-07-20 14:16 | HP ---
CIWA Score - CIWA Score Nausea/Vomitin-Int. Nausea w/Dry Heave Muscle Tremors: 3 Anxiety: 4-Mod. Anxious/Guarded Agitation: 3 Paroxysmal Sweats: 1-Minimal Palms Moist Orientation: 0-Oriented Tacttile Disturbances: 3-Moderate Itch/Numb/Burn (SKIN NUMBNESS) Auditory Disturbances: 0-None Visual Disturbances: 0-None Headache: 0-None Present CIWA-Ar Total Score: 18 Admission [facility] Chief Complaint: ALCOHOL WITHDRAWAL SX Allergies/Adverse Reactions: Allergies Allergy/AdvReac Type Severity Reaction Status Date / Time No Known Allergies Allergy Verified 07/20/17 13:11 History of Present Illness: 47 Y/O AA/MALE WITH A HX OF HEROIN,COCAINE AND ALCOHOL DEPENDENCE SEEKING DETOX TX. PT CURRENTLY IN [facility] AND IN [facility] PT STATES HE WAS REFERRED HERE TODAY FROM [facility] BECAUSE STILL DRINKING ALCOHOL. Exam Limitations: No Limitations - Ebola screening Have you traveled outside of the country in the last 21 days: No (N) Have you had contact with anyone from an Ebola affected area: No Have you been sick,other than usual withdrawal symptoms: No Do you have a fever: No - Review of Systems Constitutional: Chills, Night Sweats, Changes in sleep, Unintentional Wgt. Loss EENT: reports: Blurred Vision, Tearing, Nose Congestion, Dental Problems ( BROKEN TEETH) Respiratory: reports: SOB with Exertion Cardiac: reports: Chest Pain, Lightheadedness, Chest Tightness GI: reports: Nausea, Poor Fluid Intake (DRY MOUTH), Abdominal cramping : reports: No Symptoms Reported Musculoskeletal: reports: Back Pain, Joint Pain, Muscle Pain Integumentary: reports: Bruising, Rash (BREAKOUTS IN SUMMER, ESPECIALLY.) Neuro: reports: Numbness, Tremors, Unsteady Gait (LOOSES BALANCE EASILY), Dizziness Endocrine: reports: No Symptoms Reported Hematology: reports: Anemia (18 YRS AGO), Easy Bruising Psychiatric: reports: Orientated x3 Other Systems: Reviewed and Negative Patient History - Patient Medical History Hx Anemia: Yes (EIGHTEN YRS AGO) Hx Asthma: No Hx Chronic Obstructive Pulmonary Disease (COPD): No Hx Cancer: No Hx Cardiac Disorders: No Hx Congestive Heart Failure: No Hx Hypertension: No Hx Hypercholesterolemia: No Hx Pacemaker: No HX Cerebrovascular Accident: No Hx Seizures: No Hx Dementia: No Hx Diabetes: No Hx Gastrointestinal Disorders: No Hx Liver Disease: No Hx Genitourinary Disorders: No Hx Sexually Transmitted Disorders: No Hx Renal Disease (ESRD): No Hx Thyroid Disease: No Hx Human Immunodeficiency Virus (HIV): No (NEGATIVE HX) Hx Hepatitis C: Yes Hx Depression: Yes Hx Suicide Attempt: No (DENIES S/I) Hx Bipolar Disorder: No Hx Schizophrenia: No - Patient Surgical History Past Surgical History: No Hx Neurologic Surgery: No Hx Cataract Extraction: No Hx Cardiac Surgery: No Hx Lung Surgery: No Hx Breast Surgery: No Hx Breast Biopsy: No Hx Abdominal Surgery: No Hx Appendectomy: No Hx Cholecystectomy: No Hx Genitourinary Surgery: No Hx Orthopedic Surgery: No Anesthesia Reaction: No - PPD History Date: 12/17/16 Results: 0 mm PPD to be Administered?: No - Reproductive History Patient is a Female of Child Bearing Age (11 -55 yrs old): No (MALE) - Smoking Cessation Smoking history: Current every day smoker Have you smoked in the past 12 months: Yes Aproximately how many cigarettes per day: 20 Cigars Per Day: 0 Hx Chewing Tobacco Use: No Initiated information on smoking cessation: Yes 'Breaking Loose' booklet given: 07/20/17 - Substance & Tx. History Hx Alcohol Use: Yes (VODKA) Hx Substance Use: Yes (COCAINE) Substance Use Type: Alcohol, Cocaine, Heroin Hx Substance Use Treatment: Yes - Substances Abused Alcohol Route: Oral Frequency: Daily Amount used: 4 PINTS LIQUOR Age of first use: 14 Date of Last Use: 07/20/17 Cocaine Route: Smoking Frequency: 1-3 times last 30 days Amount used: 1/2 GRAM Age of first use: 23 Date of Last Use: 07/19/17 Heroin Route: Injection Frequency: Daily Amount used: 2 BAGS Age of first use: 19 Date of Last Use: 07/20/17 Family Disease History - Family Disease History Family Disease History: Diabetes: Mother, Heart Disease: Father, Other: Brother (no brother) Admission Physical Exam BHS - Vital Signs Vital Signs: Vital Signs - 24 hr 07/20/17 11:52 Temperature 97.3 F L Pulse Rate 82 Respiratory 18 Rate Blood Pressure 127/82 - Physical General Appearance: Yes: Moderate Distress, Irritable, Anxious HEENTM: Yes: EOMI, Normocephalic, JUSTINO, Pharynx Normal Respiratory: Yes: Chest Non-Tender, Lungs Clear, Normal Breath Sounds, No Respiratory Distress Neck: Yes: No masses,lesions,Nodules, Supple, Trachea in good position Breast: Yes: Breast Exam Deferred Cardiology: Yes: Regular Rhythm, Regular Rate, S1, S2 Abdominal: Yes: Normal Bowel Sounds, Non Tender, Flat Genitourinary: Yes: Other (N/C) Back: Yes: Within Normal Limits Musculoskeletal: Yes: full range of Motion, Gait Steady Extremities: Yes: Normal Range of Motion, Non-Tender Neurological: Yes: patternmaker II-XII NML intact, Fully Oriented, Alert, Motor Strength 5/5 Integumentary: Yes: Dry, Warm Lymphatic: Yes: Within Normal Limits - Diagnostic (1) Alcohol dependence with uncomplicated withdrawal Current Visit: Yes Status: Acute (2) Cocaine dependence Current Visit: Yes Status: Acute Qualifiers: Substance use status: uncomplicated Qualified Code(s): F14.20 - Cocaine dependence, uncomplicated (3) Nicotine dependence Current Visit: Yes Status: Acute Qualifiers: Nicotine product type: cigarettes Substance use status: in withdrawal Qualified Code(s): F17.213 - Nicotine dependence, cigarettes, with withdrawal (4) Weight loss Current Visit: Yes Status: Acute (5) Hepatitis C Current Visit: No Status: Chronic Qualifiers: Viral hepatitis chronicity: carrier Qualified Code(s): B18.2 - Chronic viral hepatitis C (6) Methadone maintenance therapy patient Current Visit: Yes Status: Chronic Cleared for Admission [facility] - Detox or Rehab [facility] Level of Care: Medically Managed Detox Regimen/Protocol: Librium [facility] Breath Alcohol Content Breath Alcohol Content: 0.093 Urine Drug Screen - Results Drug Screen Negative: No Urine Drug Screen Results: SHIVA-Cocaine, OPI-Opiates, MTD-Methadone
[2017-07-20] MEDS ORDERED: guaiFENesin/D-METHORPHAN HB 10 ML UNIT-DOSE CUPS PO PRN (14:34)
[2017-07-20] MEDS ORDERED: MAGNESIUM HYDROX 2400MG/30ML ORAL SUSPENSION 30 ML CUP PO PRN (14:34)
[2017-07-20] MEDS ORDERED: LOPERAMIDE HCL 2 MG CAPSULE PO PRN (14:34)
[2017-07-20] MEDS ORDERED: ACETAMINOPHEN 325 MG TABLET (FP) PO PRN (14:34)
[2017-07-20] MEDS ORDERED: MENTHOL/PHENOL 1 EACH UD MM PRN (14:34)
[2017-07-20] MEDS ORDERED: chlordiazePOXIDE HCL 25 MG CAPSULE PO PRN (14:34)
[2017-07-20] MEDS ORDERED: IBUPROFEN 400 MG TABLET (FP) PO PRN (14:34)
[2017-07-20] MEDS ORDERED: MAGNESIUM CITRATE 300 ML BOTTLE PO PRN (14:34)
[2017-07-20] MEDS ORDERED: NICOTINE POLACRILEX 4 MG GUM BC PRN (14:34)
[2017-07-20] MEDS ORDERED: P-EPHED 60MG/TRIPROLIDI 2.5MG TABLET PO PRN (14:34)
[2017-07-20] MEDS ORDERED: MAG HYDROX/AL HYDROX/SIMETH 30 ML UNIT-DOSE CUP PO PRN (14:34)
[2017-07-20] MEDS ORDERED: chlordiazePOXIDE HCL 25 MG CAPSULE PO ONE (16:30)
[2017-07-20] MEDS: NICOTINE 21 MG/24 HOURS TOPICAL PATCH TD SCH (17:26)
[2017-07-20] MEDS: chlordiazePOXIDE HCL 25 MG CAPSULE PO SCH ×2 (17:27→22:10)
--- NOTE | 2017-07-20 17:36 | CONSULT ---
[facility] Psychiatric Consult - Data Date of interview: 07/20/17 Admission source: [facility] Identifying data: Another admission to [facility] for this 47 y/o AA male seeking detox treatment on for alcohol,cocaine and heroin dependence.Patient is single without children,domiciled,unemployed and supported on food stamps. Substance Abuse History: Confirmed by patient in this interview.Details in current [facility] report : Smoking history: Current every day smoker. Have you smoked in the past 12 months: Yes. Aproximately how many cigarettes per day: 20. Cigars Per Day: 0. Hx Chewing Tobacco Use: No. Initiated information on smoking cessation: Yes. 'Breaking Loose' booklet given: 07/20/17. - Substance & Tx. History. Hx Alcohol Use: Yes (VODKA). Hx Substance Use: Yes (COCAINE). Substance Use Type: Alcohol, Cocaine, Heroin. Hx Substance Use Treatment: Yes. - Substances Abused. Alcohol. Route: Oral. Frequency: Daily. Amount used: 4 PINTS LIQUOR. Age of first use: 14. Date of Last Use: 07/20/17. Cocaine. Route: Smoking. Frequency: 1-3 times last 30 days. Amount used: 1/2 GRAM. Age of first use: 23. Date of Last Use: 07/19/17. Heroin. Route: Injection. Frequency: Daily. Amount used: 2 BAGS. Age of first use: 19. Date of Last Use: 07/20/17 Medical History: Hepatitis C,anemia and distant history of injury to right shoulder (2013) with atrophy of right arm. Psychiatric History: No reported history of psychiatric hospitalizations.Patient denies history of mental illness.Mr Jolly declares that his issues are primarily substance abuse-related.No history of psychiatric OPD care.Patient denies suicide attempts.Currently on methadone maintenance (80 mg/day). Physical/Sexual Abuse/Trauma History: Patient denies. Additional Comment: Urine Drug Screen Results: SHIAV-Cocaine, OPI-Opiates, MTD- Methadone.Noted. Mental Status Exam - Mental Status Exam Alert and Oriented to: Time, Place, Person Cognitive Function: Good Patient Appearance: Disheveled Mood: Nervous, Withdrawn, Anxious Affect: Mood Congruent Patient Behavior: Fatigued, Appropriate, Cooperative Speech Pattern: Clear Voice Loudness: Normal Thought Process: Intact, Goal Oriented Thought Disorder: Not Present Hallucinations: Denies Suicidal Ideation: Denies Homicidal Ideation: Denies Insight/Judgement: Poor Sleep: Poorly, Difficulty falling asleep Appetite: Good Muscle strength/Tone: Normal Gait/Station: Normal Psychiatric Findings - Problem List ([place] 1, 2,3) (1) Opioid dependence on agonist therapy Current Visit: Yes Status: Acute (2) Alcohol dependence with uncomplicated withdrawal Current Visit: Yes Status: Acute (3) Cocaine dependence Current Visit: Yes Status: Acute Qualifiers: Substance use status: uncomplicated Qualified Code(s): F14.20 - Cocaine dependence, uncomplicated (4) Nicotine dependence Current Visit: Yes Status: Acute Qualifiers: Nicotine product type: cigarettes Substance use status: in withdrawal Qualified Code(s): F17.213 - Nicotine dependence, cigarettes, with withdrawal (5) Substance induced mood disorder Current Visit: Yes Status: Acute (6) Insomnia Current Visit: Yes Status: Acute - Initial Treatment Plan Initial Treatment Plan: Psychoeducation.Sleep hygiene.Detoxification in progress.Ambien 5 mg po hs prn.Side effects/benefits discussed with the patient.Mr Jolly agrees with this careplan.Observation.
[2017-07-20 21:39] LABS: URINE APPEARANCE CLEAR; URINE BILIRUBIN NEGATIVE (<2.0 mg/dL); URINE BLOOD NEGATIVE (NEGATIVE); URINE COLOR YELLOW; URINE GLUCOSE (UA) NEGATIVE (NEGATIVE); URINE KETONE TRACE (NEGATIVE); URINE LEUK ESTERASE NEGATIVE (NEGATIVE); URINE NITRITE NEGATIVE (NEGATIVE); URINE PROTEIN NEGATIVE (NEGATIVE); URINE UROBILINOGEN NEGATIVE mg/dL (0.2-1.0)
[2017-07-20] MEDS: THIAMINE HCL 100 MG TABLET (FP) PO SCH (22:09)
[2017-07-20] MEDS: MELATONIN 5 MG TABLETS PO PRN (22:11)
[2017-07-21] MEDS: chlordiazePOXIDE HCL 25 MG CAPSULE PO SCH ×4 (05:34→22:22)
[2017-07-21] MEDS ORDERED: METHADONE HCL 10 MG TABLET PO SCH (07:30)
[2017-07-21] MEDS: METHADONE HCL 40 MG DISPERSABLE TABLET PO SCH (07:40)
[2017-07-21] MEDS: PRENATAL VITAMINS W/ FOLIC ACID TABLET (FP) PO SCH (10:17)
[2017-07-21] MEDS: NICOTINE 21 MG/24 HOURS TOPICAL PATCH TD SCH (10:18)
[2017-07-21 10:31] LABS: HEMATOCRIT 38.4 % (35.4-49); MCH 34.5 pg (25.7-33.7); MCHC 33.8 g/dl (32.0-35.9); MEAN CELL VOLUME 102.3 fl (80-96); MEAN PLT VOLUME 9.1 fl (7.5-11.1); PLATELET COUNT 176 K/MM3 (134-434); RBC 3.75 M/mm3 (4.00-5.60); RDW 14.8 % (11.9-15.9); WHITE BLOOD COUNT 4.4 K/mm3 (4.0-10.0)
[2017-07-21 10:40] LABS: ALBUMIN 3.6 g/dl (3.4-5.0); ANION GAP 4 (8-16); BLOOD UREA NITROGEN 22 mg/dL (7-18); CALCIUM 9.1 mg/dL (8.5-10.1); CHLORIDE 103 mmol/L (98-107); CO2 31 mmol/L (21-32); POTASSIUM 4.2 mmol/L (3.5-5.1); SODIUM 138 mmol/L (136-145)
[2017-07-21 10:46] LABS: ALK PHOS 108 U/L (45-117); BILIRUBIN,TOTAL 0.5 mg/dL (0.2-1.0); CREATININE 0.8 mg/dL (0.7-1.3); GLUCOSE,RANDOM 94 mg/dL (74-106); SGOT/AST 193 U/L (15-37); SGPT/ALT 222 U/L (12-78); TOT PROT 7.4 g/dl (6.4-8.2)
[2017-07-21] MEDS: HYDROCORTISONE 0.5% TOPICAL OINTMENT TUBE TP SCH (15:53)
--- NOTE | 2017-07-21 17:47 | PN ---
[facility] CIWA - CIWA Score Nausea/Vomitin-No Nausea/No Vomiting Muscle Tremors: None Anxiety: 4-Mod. Anxious/Guarded Agitation: 4-Moderately Restless Paroxysmal Sweats: 3 Orientation: 0-Oriented Tacttile Disturbances: 3-Moderate Itch/Numb/Burn Auditory Disturbances: 1-Very Mild Visual Disturbances: 2-Mild Sensitivity Headache: 0-None Present CIWA-Ar Total Score: 17 BHS Progress Note (SOAP) Subjective: Constipation, Anxious, Sweating. Objective: PATIENT A & O X 3, OBSERVED AMBULATING ON UNIT. NO ACUTE DISTRESS. 07/21/17 17:44 Vital Signs Temperature 96.2 F L 07/21/17 15:30 Pulse Rate 75 07/21/17 15:30 Respiratory Rate 20 07/21/17 15:30 Blood Pressure 118/77 07/21/17 15:30 O2 Sat by Pulse Oximetry (%) Laboratory Tests 07/20/17 07/21/17 07/21/17 18:40 07:50 07:50 WBC 4.4 RBC 3.75 L Hgb 13.0 Hct 38.4 MCV 102.3 H MCH 34.5 H MCHC 33.8 RDW 14.8 Plt Count 176 MPV 9.1 Sodium 138 Potassium 4.2 Chloride 103 Carbon Dioxide 31 Anion Gap 4 L BUN 22 H Creatinine 0.8 Creat Clearance w eGFR > 60 Random Glucose 94 Calcium 9.1 Total Bilirubin 0.5 AST 193 H D ALT 222 H Alkaline Phosphatase 108 D Total Protein 7.4 Albumin 3.6 Urine Color Yellow Urine Appearance Clear Urine pH 5.0 Ur Specific [place] 1.026 Urine Protein Negative Urine Glucose (UA) Negative Urine Ketones Trace H Urine Blood Negative Urine Nitrite Negative Urine Bilirubin Negative Urine Urobilinogen Negative Ur Leukocyte Esterase Negative RPR Titer HIV 1&2 Antibody Screen HIV P24 Antigen 07/21/17 07/21/17 07:50 07:50 WBC RBC Hgb Hct MCV MCH MCHC RDW Plt Count MPV Sodium Potassium Chloride Carbon Dioxide Anion Gap BUN Creatinine Creat Clearance w eGFR Random Glucose Calcium Total Bilirubin AST ALT Alkaline Phosphatase Total Protein Albumin Urine Color Urine Appearance Urine pH Ur Specific [place] Urine Protein Urine Glucose (UA) Urine Ketones Urine Blood Urine Nitrite Urine Bilirubin Urine Urobilinogen Ur Leukocyte Esterase RPR Titer Nonreactive HIV 1&2 Antibody Screen Negative HIV P24 Antigen Negative LABS NOTED. Assessment: 07/21/17 17:44 WITHDRAWAL SYMPTOMS. Plan: CONTINUE DETOX. INCREASE DAILY PO FLUID INTAKE. PRN MOM FOR CONSTIPATION. REPEAT AST, ALT TOMORROW AM FOR ELEVATED ADMISSION LEVELS.
[2017-07-21] MEDS: THIAMINE HCL 100 MG TABLET (FP) PO SCH (22:22)
[2017-07-21] MEDS: MELATONIN 5 MG TABLETS PO PRN (23:38)
[2017-07-22] MEDS: METHADONE HCL 40 MG DISPERSABLE TABLET PO SCH (05:58)
[2017-07-22] MEDS: chlordiazePOXIDE HCL 25 MG CAPSULE PO SCH ×2 (05:58→10:33)
[2017-07-22] MEDS: HYDROCORTISONE 0.5% TOPICAL OINTMENT TUBE TP SCH (10:33)
[2017-07-22] MEDS: PRENATAL VITAMINS W/ FOLIC ACID TABLET (FP) PO SCH (10:33)
[2017-07-22] MEDS: NICOTINE 21 MG/24 HOURS TOPICAL PATCH TD SCH (10:33)
[2017-07-22 11:04] LABS: SGOT/AST 162 U/L (15-37); SGPT/ALT 216 U/L (12-78)
--- NOTE | 2017-07-22 12:22 | PN ---
S CIWA - CIWA Score Nausea/Vomitin-No Nausea/No Vomiting Muscle Tremors: 3 Anxiety: 3 Agitation: 3 Paroxysmal Sweats: 3 Orientation: 0-Oriented Tacttile Disturbances: 0-None Auditory Disturbances: 0-None Visual Disturbances: 0-None Headache: 0-None Present CIWA-Ar Total Score: 12 BHS Progress Note (SOAP) Subjective: interrupted sleep body aches sweats Objective: 07/22/17 12:22 Vital Signs Temperature 96.2 F L 07/22/17 10:45 Pulse Rate 74 07/22/17 10:45 Respiratory Rate 18 07/22/17 10:45 Blood Pressure 133/94 07/22/17 10:45 O2 Sat by Pulse Oximetry (%) Laboratory Tests 07/20/17 07/21/17 07/21/17 18:40 07:50 07:50 WBC 4.4 RBC 3.75 L Hgb 13.0 Hct 38.4 MCV 102.3 H MCH 34.5 H MCHC 33.8 RDW 14.8 Plt Count 176 MPV 9.1 Sodium 138 Potassium 4.2 Chloride 103 Carbon Dioxide 31 Anion Gap 4 L BUN 22 H Creatinine 0.8 Creat Clearance w eGFR > 60 Random Glucose 94 Calcium 9.1 Total Bilirubin 0.5 AST 193 H D ALT 222 H Alkaline Phosphatase 108 D Total Protein 7.4 Albumin 3.6 Urine Color Yellow Urine Appearance Clear Urine pH 5.0 Ur Specific [place] 1.026 Urine Protein Negative Urine Glucose (UA) Negative Urine Ketones Trace H Urine Blood Negative Urine Nitrite Negative Urine Bilirubin Negative Urine Urobilinogen Negative Ur Leukocyte Esterase Negative RPR Titer HIV 1&2 Antibody Screen HIV P24 Antigen 07/21/17 07/21/17 07/22/17 07:50 07:50 08:20 WBC RBC Hgb Hct MCV MCH MCHC RDW Plt Count MPV Sodium Potassium Chloride Carbon Dioxide Anion Gap BUN Creatinine Creat Clearance w eGFR Random Glucose Calcium Total Bilirubin AST 162 H ALT 216 H Alkaline Phosphatase Total Protein Albumin Urine Color Urine Appearance Urine pH Ur Specific [place] Urine Protein Urine Glucose (UA) Urine Ketones Urine Blood Urine Nitrite Urine Bilirubin Urine Urobilinogen Ur Leukocyte Esterase RPR Titer Nonreactive HIV 1&2 Antibody Screen Negative HIV P24 Antigen Negative aaox3 ambulating no acute distress repeated liver enzymes improving Assessment: 07/22/17 12:24 withdrawal sx Plan: continue detox increase fluids
[2017-07-22] MEDS: chlordiazePOXIDE 5 MG CAPSULE PO SCH ×2 (17:16→22:17)
[2017-07-22] MEDS: MELATONIN 5 MG TABLETS PO PRN (22:17)
[2017-07-22] MEDS: THIAMINE HCL 100 MG TABLET (FP) PO SCH (22:17)
[2017-07-23] MEDS: METHADONE HCL 40 MG DISPERSABLE TABLET PO SCH (05:03)
[2017-07-23] MEDS: chlordiazePOXIDE 5 MG CAPSULE PO SCH (05:03)
[2017-07-23 09:18] VITALS: BP 136/83; PULSE 76; TEMP 96.7
[2017-07-23] MEDS ORDERED: chlordiazePOXIDE HCL 10 MG CAPSULE PO SCH ×2 (11:00→17:00)
--- NOTE | 2017-07-23 11:42 | DS ---
[facility] Detox Discharge Summary Admission Date: 07/20/17 Discharge Date: 07/23/17 - History Present History: Alcohol Dependence, Cocaine Dependence Additional Comments: DETOX PROCEEDED WELL. ALERT O X 3. NAD. Pertinent Past History: PLEASE SEE DX BELOW - Physical Exam Results Vital Signs: Vital Signs Temperature 96.7 F L 07/23/17 09:17 Pulse Rate 76 07/23/17 09:17 Respiratory Rate 18 07/23/17 09:17 Blood Pressure 136/83 07/23/17 09:17 O2 Sat by Pulse Oximetry (%) Pertinent Admission Physical Exam Findings: WITHDRAWAL SX Laboratory Last Values WBC 4.4 K/mm3 (4.0-10.0) 07/21/17 07:50 RBC 3.75 M/mm3 (4.00-5.60) L 07/21/17 07:50 Hgb 13.0 GM/dL (11.7-16.9) 07/21/17 07:50 Hct 38.4 % (35.4-49) 07/21/17 07:50 MCV 102.3 fl (80-96) H 07/21/17 07:50 MCH 34.5 pg (25.7-33.7) H 07/21/17 07:50 MCHC 33.8 g/dl (32.0-35.9) 07/21/17 07:50 RDW 14.8 % (11.9-15.9) 07/21/17 07:50 Plt Count 176 K/MM3 (134-434) 07/21/17 07:50 MPV 9.1 fl (7.5-11.1) 07/21/17 07:50 Sodium 138 mmol/L (136-145) 07/21/17 07:50 Potassium 4.2 mmol/L (3.5-5.1) 07/21/17 07:50 Chloride 103 mmol/L (98-107) 07/21/17 07:50 Carbon Dioxide 31 mmol/L (21-32) 07/21/17 07:50 Anion Gap 4 (8-16) L 07/21/17 07:50 BUN 22 mg/dL (7-18) H 07/21/17 07:50 Creatinine 0.8 mg/dL (0.7-1.3) 07/21/17 07:50 Creat Clearance w eGFR > 60 (>60) 07/21/17 07:50 Random Glucose 94 mg/dL (74-106) 07/21/17 07:50 Calcium 9.1 mg/dL (8.5-10.1) 07/21/17 07:50 Total Bilirubin 0.5 mg/dL (0.2-1.0) 07/21/17 07:50 AST 162 U/L (15-37) H 07/22/17 08:20 ALT 216 U/L (12-78) H 07/22/17 08:20 Alkaline Phosphatase 108 U/L (45-117) D 07/21/17 07:50 Total Protein 7.4 g/dl (6.4-8.2) 07/21/17 07:50 Albumin 3.6 g/dl (3.4-5.0) 07/21/17 07:50 Urine Color Yellow 07/20/17 18:40 Urine Appearance Clear 07/20/17 18:40 Urine pH 5.0 (5.0-8.0) 07/20/17 18:40 Ur Specific [place] 1.026 (1.001-1.035) 07/20/17 18:40 Urine Protein Negative (NEGATIVE) 07/20/17 18:40 Urine Glucose (UA) Negative (NEGATIVE) 07/20/17 18:40 Urine Ketones Trace (NEGATIVE) H 07/20/17 18:40 Urine Blood Negative (NEGATIVE) 07/20/17 18:40 Urine Nitrite Negative (NEGATIVE) 07/20/17 18:40 Urine Bilirubin Negative (<2.0 mg/dL) 07/20/17 18:40 Urine Urobilinogen Negative mg/dL (0.2-1.0) 07/20/17 18:40 Ur Leukocyte Esterase Negative (NEGATIVE) 07/20/17 18:40 RPR Titer Nonreactive (NONREACTIVE) 07/21/17 07:50 HIV 1&2 Antibody Screen Negative 07/21/17 07:50 HIV P24 Antigen Negative 07/21/17 07:50 - Treatment Hospital Course: Detox Protocol Followed, Detoxed Safely, Responded well, Discharged Condition Good, Rehab Referral Accepted Patient has Accepted a Rehab Referral to: [facility] - Medication Discharge Medications: Ambulatory Orders NK [No Known Home Medication] 03/19/14 - Diagnosis (1) Alcohol dependence with uncomplicated withdrawal Status: Acute (2) Cocaine dependence Status: Acute Qualifiers: Substance use status: uncomplicated Qualified Code(s): F14.20 - Cocaine dependence, uncomplicated (3) Nicotine dependence Status: Acute Qualifiers: Nicotine product type: cigarettes Substance use status: in withdrawal Qualified Code(s): F17.213 - Nicotine dependence, cigarettes, with withdrawal (4) Weight loss Status: Acute (5) Hepatitis C Status: Chronic Qualifiers: Viral hepatitis chronicity: chronic Hepatic coma status: without hepatic coma Qualified Code(s): B18.2 - Chronic viral hepatitis C (6) Methadone maintenance therapy patient Status: Chronic - AMA Did Patient Leave Against Medical Advice: No
--- NOTE | 2017-07-23 12:44 | EKG ---
Test Reason : Blood Pressure : / mmHG Vent. Rate : 060 BPM Atrial Rate : 060 BPM P-R Int : 176 ms QRS Dur : 094 ms QT Int : 430 ms P-R-T Axes : 040 035 031 degrees QTc Int : 430 ms NORMAL SINUS RHYTHM WITH SINUS ARRHYTHMIA NORMAL ECG WHEN COMPARED WITH ECG OF 11-APR-2017 01:06, NO SIGNIFICANT CHANGE WAS FOUND Confirmed by MARTÍNEZ TAPIA MD ([id number]) on 07/23/2017 12:43:40 PM Referred By: Confirmed By:MARTÍNEZ TAPIA MD
== END 2017-07-23 09:30 | disposition home or self-care (01) | DRG 773 ==
LOC: YASAS 10:37 → Y3N 13:44
PROVIDERS: ADMIT Internal Medicine; ATTEND Internal Medicine
PROC: HZ2ZZZZ Detoxification Services for Substance Abuse Treatment (ICD-10-PCS; principal; 2017-07-20)
DX: F11.20 Opioid dependence, uncomplicated (principal); F10.230 Alcohol dependence with withdrawal, uncomplicated; F14.20 Cocaine dependence, uncomplicated; F17.213 Nicotine dependence, cigarettes, with withdrawal; F32.9 Major depressive disorder, single episode, unspecified; B18.2 Chronic viral hepatitis C; G47.00 Insomnia, unspecified; R63.4 Abnormal weight loss; Z68.27 Body mass index [BMI] 27.0-27.9, adult; Z86.2 Personal history of diseases of the blood and blood-forming organs and certain disorders involving the immune mechanism
CPT/HCPCS: 36415; 80053; 81003; 84450; 84460; 85027; 86593; 87389; 93005; 93010